=== PATIENT | male | born 1940 | race Caucasian/White ===

== ENCOUNTER 2019-07-07 09:43 | Outpatient (CLI) | payer MEDICARE, OTHER, SELFPAY ==
--- NOTE | 2019-07-07 14:55 | ECG_ITS ---
Measurements Intervals [place] Rate: 60 P: 63 UT: 204 QRS: 107 QRSD: 157 T: -8 QT: 501 QTc: 503 Interpretive Statements SINUS RHYTHM WITH FIRST DEGREE AV BLOCK VENTRICULAR PREMATURE COMPLEXES RIGHT AXIS DEVIATION RIGHT BUNDLE BRANCH BLOCK CANNOT RULE OUT SEPTAL INFARCT, AGE INDETERMINATE ABNORMAL ECG Electronically Signed On 07-07-2019 15:59:04 PHOTOENGRAVING PROOFER APPRENTICE by Kiko Shore D.O.
[2019-07-07 15:32] LABS: Basophils Percent Auto 0.3 % (0.2-1.2); Eosinophils Absolute Auto 0.1 K/mm3 (0-0.3); Eosinophils Percent Auto 2.1 % (0-4.4); Hematocrit 41.9 % (42.0-52.0); Hemoglobin 13.9 g/dL (14.0-18.0); Immature Granulocyte Absolute 0.03 K/mm3 (0.00-0.031); Immature Granulocyte Percent A 0.4 % (0-0.5); Lymphocytes Absolute Auto 1.47 K/mm3 (0.9-3.2); Lymphocytes Percent Auto 21.8 % (18.3-44.2); Mean Corpuscular HGB Conc 33.2 g/dl (32-36); Mean Corpuscular Hemoglobin 32.2 pg (26-34); Mean Platelet Volume 10.6 fl (7.4-10.4); Monocytes Absolute Auto 0.5 K/mm3 (0.1-0.6); Monocytes Percent Auto 7.1 % (2.6-8.5); Neutrophils Absolute Auto 4.6 K/mm3 (1.3-6.7); Neutrophils Percent Auto 68.3 % (45.5-73.1); Platelet Count Result 238 k/mm3 (150-375); Red Blood Count 4.32 M/mm3 (4.6-6.20); Red Cell Distribution Width 14.1 % (11.5-14.5); White Blood Count 6.7 K/mm3 (4.5-10.0)
[2019-07-07 15:42] LABS: Hemoglobin A1C 6.6 % (<5.7)
[2019-07-07 15:57] LABS: Blood Urea Nitrogen 18 mg/dL (9-20); Calcium 9.5 mg/dL (8.4-10.2); Carbon Dioxide 27 mmol/L (22-30); Chloride 103 mmol/L (98-107); Estimated Glomerular Filt Rate > 60; Glucose 131 mg/dL (75-110); Potassium 3.6 mmol/L (3.4-5.0); Sodium 141 mmol/L (137-145)
[2019-07-07 15:58] LABS: Albumin Level 4.5 g/dL (3.5-5.1); Urine Cotinine NEGATIVE
== END 2019-07-07 09:44 | disposition home or self-care (01) ==
LOC: ANHSURGERY 09:46
PROVIDERS: Anesthesiology; PCP Family Medicine; Visit Provider Orthopaedic Surgery
DX: I10 Essential (primary) hypertension (principal); I44.0 Atrioventricular block, first degree; I45.10 Unspecified right bundle-branch block
CPT/HCPCS: 36415; 80048; 80307; 82040; 83036; 85025; 93005

== ENCOUNTER 2019-07-15 01:19 | Day surgery (SDC) | payer MEDICARE, OTHER, SELFPAY ==
[2019-07-07 10:17] VITALS: BMI 30.8
[2019-07-07 10:31] VITALS: BP 172/90; PULSE 66; RESP 20; TEMP 36.6; O2SAT 97
--- NOTE | 2019-07-08 14:19 | PM.IMHP ---
H&P: HPI History of Present Illness Chief complaint: OA Left Knee Narrative: Mahad Castanon is a 78 year old male with chronic primary OA L knee, pain with ambulation, unrelieved by cortisone, PT, NSAIDs, and activity modification, xrays reveal advanced OA, now ready for a TKA L knee Review of Systems Review of Systems: All systems reviewed & are unremarkable except as noted in HPI and below PMFSH Past Medical History Medical History (Updated 07/08/19 @ 14:29 by RISHI Goetz) Afib CHF (congestive heart failure) COPD (chronic obstructive pulmonary disease) GERD (gastroesophageal reflux disease) H/O lipoma HTN (hypertension) Prostate cancer Sleep apnea Torn rotator cuff Surgical History Surgical History H/O bilateral cataract extraction H/O prostatectomy H/O transurethral resection of prostate Hx of tonsillectomy Social History Social History Smoking status: Former smoker Alcohol intake: former Gender identity (if verbalized by the patient): Male Meds Home Medications and Allergies Home Medications Medication Instructions Recorded Confirmed Type furosemide 40 mg BID 04/27/19 07/07/19 History irbesartan 150 mg PO HS 04/27/19 07/07/19 History levothyroxine 50 mcg PO HS 04/27/19 07/07/19 History metoprolol succinate 150 mg PO DAILY 04/27/19 07/07/19 History rivaroxaban [Xarelto] 20 mg PO HS 04/27/19 07/07/19 History metoprolol tartrate 25 mg PO HS 05/21/19 07/07/19 History Allergies Allergy/AdvReac Type Severity Reaction Status Date / Time Sulfa (Sulfonamide Allergy Mild Rash, Verified 07/07/19 10:03 Antibiotics) ITCHING, HIVES Penicillins Allergy Unknown Rash, Verified 07/07/19 10:03 ITCHING, HIVES cephalexin [From Keflex] Allergy Hives Verified 07/07/19 10:03 Exam Const: General: cooperative and no acute distress Nutritional Appearance: average body habitus HENMT: Head: normal to inspection Ears: hearing grossly normal bilaterally General nose exam: Normal external nose present Face and sinus: normal facial exam Eyes: General: appearance normal, both eyes and all related structures Visual Vora: normal visual vora by confrontation Chest: Chest palpation & inspection: normal inspection of the chest Resp: Effort & Inspection: normal respiratory effort Auscultation: clear to auscultation bilaterally Cardio: Rate: regular rate Rhythm: regular rhythm GI: Inspection: normal to inspection Auscultation: normal bowel sounds Skin: General skin exam: normal color Lesions: no lesions Rashes: no rashes Neuro: General: oriented to person, oriented to place, oriented to time, patient oriented x3 and CN's II-XI intact bilaterally Extrem: Left lower extremity: knee Details: tenderness, swelling, abnormal ROM and crepitus Psych: Appearance: grossly normal Assessment and Plan Assessment and plan (1) Primary osteoarthritis of left knee: Code(s): M17.12 - Unilateral primary osteoarthritis, left knee Status: Acute Assessment and Plan: Pt has discussed risks benefits limitations and alternatives to surgery in detail with Dr Willis and has advanced primary OA L knee, ready to proceed with a L TKA on 07-15-19 at [facility]
[2019-07-15] VITALS (12 sets, daily range): BP systolic 141–166; BP diastolic 61–80; PULSE 52–84; RESP 10–20; TEMP 36.6–36.8; O2SAT 95–100
--- NOTE | ~2019-07-15 | XR_ITS ---
EXAMINATION: XR knee LT 2V DATE: 07/15/2019 12:02 INDICATION: Total left knee arthroplasty. Postop. TECHNIQUE: 2 views of left knee were obtained. COMPARISON: None. FINDINGS: There is a total left knee arthroplasty with patellar resurfacing. Tibia demonstrate 6 degr ees posterior angulation with respect to tibial component. No fracture. There is gas in the knee join t and soft tissues, consistent with recent surgery. Anterior skin alan are noted. IMPRESSION: 1. New total left knee arthroplasty. Reviewed, dictated and finalized at location A. ATIONAL ASSISTANT TEACHER
--- NOTE | 2019-07-15 07:22 | WPDHPUPDATE1 ---
History and Physical Update Update Date/Time: 07/15/19 07:22 History and Physical has been reviewed, including an updated exam of the patient. There are NO changes in the patient's condition. Risks, benefits, and alternatives have been discussed and questions answered. Patient agrees to proceed with procedure.
--- NOTE | 2019-07-15 08:15 | WPDANESEPPF ---
Anes - Initial Pre Proc Eval Procedure: Operation Date: 07/15/19 10:00 Proposed Procedures p Left Total Knee Arthroplasty - Tex Willis MD Date/Time: 07/15/19 08:15 Surgeon: Tex Willis MD Pre Op Diagnosis: OA Left Knee Patient Data Age: 78 Gender: M Height: 1.75 m Weight: 94.8 kg Last Vital Signs Temp 36.6 C 07/07/19 10:31 Pulse 66 07/07/19 10:31 Resp 20 07/07/19 10:31 BP 172/90 H 07/07/19 10:31 Pulse Ox 97 07/07/19 10:31 Allergies Allergy/AdvReac Type Severity Reaction Status Date / Time Sulfa (Sulfonamide Allergy Mild Rash, Verified 07/07/19 10:03 Antibiotics) ITCHING, HIVES Penicillins Allergy Unknown Rash, Verified 07/07/19 10:03 ITCHING, HIVES cephalexin [From Keflex] Allergy Hives Verified 07/07/19 10:03 Home Medications Medication Instructions Recorded Confirmed Type furosemide 40 mg BID 04/27/19 07/15/19 History irbesartan 150 mg PO HS 04/27/19 07/15/19 History levothyroxine 50 mcg PO HS 04/27/19 07/15/19 History metoprolol succinate 150 mg PO DAILY 04/27/19 07/15/19 History rivaroxaban [Xarelto] 20 mg PO HS 04/27/19 07/15/19 History metoprolol tartrate 25 mg PO HS 05/21/19 07/15/19 History ECG: SINUS RHYTHM WITH FIRST DEGREE AV BLOCK VENTRICULAR PREMATURE COMPLEXES RIGHT AXIS DEVIATION RIGHT BUNDLE BRANCH BLOCK CANNOT RULE OUT SEPTAL INFARCT, AGE INDETERMINATE ABNORMAL ECG Patient hx anesthesia problems: none Family hx anesthesia problems: none [facility] Past Medical History Medical History (Updated 07/15/19 @ 09:21 by Cirilo Huerta DO) Afib COPD (chronic obstructive pulmonary disease) 1.5 PPD x 50 years, not officially diagnosed GERD (gastroesophageal reflux disease) H/O lipoma HTN (hypertension) Hypothyroidism Prostate cancer Torn rotator cuff Surgical History Surgical History H/O bilateral cataract extraction H/O prostatectomy H/O transurethral resection of prostate Hx of tonsillectomy Social History Social History Smoking status: Former smoker Alcohol intake: former Gender identity (if verbalized by the patient): Male Anes - Eval Final PreProcedure Day of Procedure 07/15/19 08:15 Patient weight: obese Heart: regular rate and rhythm Lungs: clear to auscultation and normal air movement Airway: Mallampati scale class II Neurological: alert and oriented Last oral intake: >/= 8 hours ASA classification: III Emergent: no Anesthetic plan: proceed Anesthesia type and monitoring: general LMA and standard monitoring Informed Consent: The patient's anesthetic plan and its attendant risks and benefits were discussed with the patient/family/POA. Questions were solicited and answers provided to the satisfaction of the patient/family/POA.
--- NOTE | 2019-07-15 08:16 | WPDANESPNB ---
Anes - Peripheral Nerve Block Date/Time: 07/15/19 08:16 I have discussed with the patient/family/POA the placement of a peripheral nerve block for post-operative pain management, including associated risks, benefits, complications, and side effects. Alternative methods of post-operative analgesia were detailed. Questions were solicited and answers provided to the satisfaction of the patient/family/POA. Time-Out: A pre-procedural Time-Out was completed immediately before starting the procedure and confirmed: Patient Identification, Site, Procedure, Patient Position and the Availability of Requisite Equipment. Clinical Indications: Acute post-operative pain management requested by the operative surgeon. Nerve Block Insertion Note Anes-nerve block: adductor canal left Patient position: supine Skin prep: chlorhexidine Needle: 22 gauge, stimulating, insulated echogenic needle. Needle length: 80 mm Technique: ultrasound Injectate: bupivacaine 0.5% with epi 5 mcg/ml (30cc) Observations: tolerated well Complications: none Procedure start time:: 925 Procedure end time:: 928
[2019-07-15] MEDS: LACTATED RINGERS 1,000 ML 30 ML IV CONT (08:43)
[2019-07-15] MEDS: CLINDAMYCIN 900 MG/NS 50 ML 900 MG/50 ML PIGGYBACK 50 MG IVPB (10:01)
[2019-07-15] MEDS: GENTAMICIN BONE CEMENT REFOBACIN 1 EACH TOPICAL (10:30)
--- NOTE | 2019-07-15 11:20 | PM.PROC ---
Procedure Note - Detailed Date of procedure: 07/15/19 Pre-op diagnosis: OA Left Knee Post-op diagnosis: same Procedure performed: [Left] total knee arthroplasty Description of procedure: The patient was brought to the operating room. General anesthetic was administered. Placed on the operating table and sterilely prepped and draped in usual manner. A longitudinal incision was made. Tourniquet inflated to 300 mmHg for a total of [35] minutes. Dissection carried down to the fascia. Medial parapatellar incision was made and the patella subluxated laterally. Patella cut from [24] to [15] mm and sized for a [34] mm button. The tibia cut perpendicular to the long axis and femur cut in 5 degrees of valgus, a [67.5] femur trialed. [71] tibia was felt to fit the best. The soft tissue balanced, hemostasis obtained. All [address], [71] tibia, [67.5] femur, [34] mm patella, and [12] mm PS Plus poly. Motion was 0-125 degrees with good stablility and flexion and extension. The wound was closed with #2 vicryl, 2-0 Vicryl and alan. Anesthesia: GETA Surgeon: Tex Willis MD Service Line Coordinator: Jair Reynolds Estimated blood loss (mL): 200 Drains: No Packing: No Pathology: none sent Complications: No immediate complications Condition: stable Disposition: PACU Findings: arthritis Large cyst in medial femoral condyle was grafted. After medial release patient still had laxity lateral and hence PS femur placed.
--- NOTE | 2019-07-15 12:47 | SUR.PHASEI ---
[phone] sbar faxed floor notified
--- NOTE | 2019-07-15 13:22 | ADMGEN ---
This patient, Mahad Castanon, was admitted to [address] [place] [address] 1320. Patient/family oriented to hospital policies and general routines including ID bracelet, bed and alarms, visiting hours, pain management, procedures, bathroom and other care routines, personal items, smoking policy, room service/diet, and visiting hours. Valuables list has been completed. Information on how to activate the Rapid Response Team has been discussed. Patient/Family are encouraged to report perceived risks to care and to ask questions if they do not understand what they are told or what they should do.
[2019-07-15 14:05] LABS: Basophils Percent Auto 0.2 % (0.2-1.2); Eosinophils Percent Auto 0.1 % (0-4.4); Hematocrit 39.8 % (42.0-52.0); Immature Granulocyte Absolute 0.06 K/mm3 (0.00-0.031); Immature Granulocyte Percent A 0.5 % (0-0.5); Lymphocytes Absolute Auto 0.69 K/mm3 (0.9-3.2); Lymphocytes Percent Auto 6.1 % (18.3-44.2); Mean Corpuscular HGB Conc 32.7 g/dl (32-36); Mean Corpuscular Hemoglobin 32.2 pg (26-34); Mean Corpuscular Volume 98.5 fl (80-100); Mean Platelet Volume 10.1 fl (7.4-10.4); Monocytes Absolute Auto 0.2 K/mm3 (0.1-0.6); Monocytes Percent Auto 1.8 % (2.6-8.5); Neutrophils Absolute Auto 10.4 K/mm3 (1.3-6.7); Neutrophils Percent Auto 91.3 % (45.5-73.1); Platelet Count Result 231 k/mm3 (150-375); Red Blood Count 4.04 M/mm3 (4.6-6.20); Red Cell Distribution Width 14.3 % (11.5-14.5); White Blood Count 11.4 K/mm3 (4.5-10.0)
[2019-07-15 14:16] LABS: Blood Urea Nitrogen 15 mg/dL (9-20); Calcium 8.9 mg/dL (8.4-10.2); Carbon Dioxide 28 mmol/L (22-30); Chloride 99 mmol/L (98-107); Estimated CRCL calculation 56 ml/min; Estimated Glomerular Filt Rate > 60; Glucose 175 mg/dL (75-110); Potassium 3.7 mmol/L (3.4-5.0); Sodium 137 mmol/L (137-145)
[2019-07-15 14:20] LABS: Albumin Level 4.1 g/dL (3.5-5.1)
[2019-07-15] MEDS: MORPHINE SULFATE 4 MG/ML INJ IV PUSH (15:47)
[2019-07-15] MEDS: CLINDAMYCIN 600 MG/NS 50 ML 600 MG/50 ML PIGGYBACK 100 MG IVPB (17:56)
[2019-07-15] MEDS: DOCUSATE SODIUM 100 MG CAPSULE PO (17:56)
[2019-07-15] MEDS: FUROSEMIDE 40 MG TABLET PO (17:56)
[2019-07-15 19:22] LABS: Hemoglobin A1C 6.7 % (<5.7)
[2019-07-15] MEDS: IRBESARTAN 150 MG TABLET PO (21:15)
[2019-07-15] MEDS: LEVOTHYROXINE SODIUM 50 MCG TABLET PO (21:15)
[2019-07-15] MEDS: RIVAROXABAN 20 MG TABLET PO (21:16)
[2019-07-15] MEDS: METOPROLOL TARTRATE 25 MG TABLET PO (21:17)
[2019-07-16] VITALS (7 sets, daily range): BP systolic 116–168; BP diastolic 50–62; PULSE 59–71; RESP 16–18; TEMP 36.8–37.4; O2SAT 95–100
[2019-07-16] MEDS: CLINDAMYCIN 600 MG/NS 50 ML 600 MG/50 ML PIGGYBACK 100 MG IVPB ×2 (01:37→11:06)
[2019-07-16 06:44] LABS: Basophils Percent Auto 0.1 % (0.2-1.2); Hematocrit 36.5 % (42.0-52.0); Immature Granulocyte Absolute 0.06 K/mm3 (0.00-0.031); Immature Granulocyte Percent A 0.6 % (0-0.5); Lymphocytes Absolute Auto 1.21 K/mm3 (0.9-3.2); Lymphocytes Percent Auto 11.4 % (18.3-44.2); Mean Corpuscular HGB Conc 32.9 g/dl (32-36); Mean Corpuscular Hemoglobin 32.3 pg (26-34); Mean Corpuscular Volume 98.4 fl (80-100); Mean Platelet Volume 10.1 fl (7.4-10.4); Monocytes Absolute Auto 1.2 K/mm3 (0.1-0.6); Monocytes Percent Auto 11.3 % (2.6-8.5); Neutrophils Absolute Auto 8.1 K/mm3 (1.3-6.7); Neutrophils Percent Auto 76.6 % (45.5-73.1); Platelet Count Result 238 k/mm3 (150-375); Red Blood Count 3.71 M/mm3 (4.6-6.20); Red Cell Distribution Width 14.4 % (11.5-14.5); White Blood Count 10.6 K/mm3 (4.5-10.0)
[2019-07-16 07:14] LABS: Blood Urea Nitrogen 26 mg/dL (9-20); Calcium 8.9 mg/dL (8.4-10.2); Carbon Dioxide 22 mmol/L (22-30); Chloride 99 mmol/L (98-107); Estimated CRCL calculation 48 ml/min; Estimated Glomerular Filt Rate 54; Glucose 147 mg/dL (75-110); Potassium 3.7 mmol/L (3.4-5.0); Sodium 136 mmol/L (137-145)
[2019-07-16] MEDS: DOCUSATE SODIUM 100 MG CAPSULE PO ×2 (08:37→16:56)
[2019-07-16] MEDS: METOPROLOL SUCCINATE EXT REL 50 MG TABCR 150 MG PO (08:37)
[2019-07-16] MEDS: FUROSEMIDE 40 MG TABLET PO ×2 (08:37→16:56)
--- NOTE | 2019-07-16 14:48 | P.PNAN_ITS ---
Anes - Prog Note Post-Op Date/Time: 07/16/19 14:48 Cardiovascular status: normal Respiratory status: normal Airway patency: baseline Mental status: baseline Post-Op hydration status: normal Vital Signs: Last Vital Signs Temp 98.2 F 07/16/19 06:00 Pulse 60 07/16/19 06:00 Resp 18 07/16/19 06:00 BP 132/60 07/16/19 06:00 Pulse Ox 95 07/16/19 06:00 I/O: Intake & Output 07/15/19 07/16/19 07/16/19 23:59 07:59 15:59 Intake Total 1080 790 240 Output Total 400 Balance 680 790 240 Laboratory Tests 07/16/19 06:15 07/16/19 06:15 07/15/19 07/15/19 07/16/19 13:50 13:50 06:15 WBC 10.6 H RBC 3.71 L Hgb 12.0 L Hct 36.5 L MCV 98.4 MCH 32.3 MCHC 32.9 RDW 14.4 Plt Count 238 MPV 10.1 Immature Gran % (Auto) 0.6 H Neut % (Auto) 76.6 H Lymph % (Auto) 11.4 L [place] % (Auto) 11.3 H Eos % (Auto) 0.0 Baso % (Auto) 0.1 L Lymph # (Auto) 1.21 [place] # (Auto) 1.2 H Eos # (Auto) 0.0 Baso # (Auto) 0.0 Abs Immat Gran (auto) 0.06 H Absolute Neuts (auto) 8.1 H Absolute Nucleated RBC 0.0 Nucleated RBC % 0.0 Sodium Potassium Chloride Carbon Dioxide BUN Creatinine Estim Creat Clear Calc Estimated GFR Glucose Hemoglobin A1c 6.7 H Calcium Blood Type O Positive Antibody Screen Negative 07/16/19 06:15 WBC RBC Hgb Hct MCV MCH MCHC RDW Plt Count MPV Immature Gran % (Auto) Neut % (Auto) Lymph % (Auto) [place] % (Auto) Eos % (Auto) Baso % (Auto) Lymph # (Auto) [place] # (Auto) Eos # (Auto) Baso # (Auto) Abs Immat Gran (auto) Absolute Neuts (auto) Absolute Nucleated RBC Nucleated RBC % Sodium 136 L Potassium 3.7 Chloride 99 Carbon Dioxide 22 BUN 26 H D Creatinine 1.30 Estim Creat Clear Calc 48 Estimated GFR 54 L Glucose 147 H Hemoglobin A1c Calcium 8.9 Blood Type Antibody Screen Post-procedural complaints: none Patient Feedback: Patient satisfied with anesthetic care.
--- NOTE | 2019-07-16 15:14 | WPDANESPN ---
Anes - Prog Note Post-Op Date/Time: 07/16/19 15:14 Cardiovascular status: normal Respiratory status: normal Airway patency: baseline Mental status: baseline Post-Op hydration status: normal Vital Signs: Last Vital Signs Temp 36.8 C 07/16/19 06:00 Pulse 60 07/16/19 06:00 Resp 18 07/16/19 06:00 BP 132/60 07/16/19 06:00 Pulse Ox 95 07/16/19 06:00 I/O: Intake & Output 07/15/19 07/16/19 07/16/19 23:59 07:59 15:59 Intake Total 1080 790 240 Output Total 400 Balance 680 790 240 Laboratory Tests 07/16/19 06:15 07/16/19 06:15 07/15/19 07/15/19 07/16/19 13:50 13:50 06:15 WBC 10.6 H RBC 3.71 L Hgb 12.0 L Hct 36.5 L MCV 98.4 MCH 32.3 MCHC 32.9 RDW 14.4 Plt Count 238 MPV 10.1 Immature Gran % (Auto) 0.6 H Neut % (Auto) 76.6 H Lymph % (Auto) 11.4 L [place] % (Auto) 11.3 H Eos % (Auto) 0.0 Baso % (Auto) 0.1 L Lymph # (Auto) 1.21 [place] # (Auto) 1.2 H Eos # (Auto) 0.0 Baso # (Auto) 0.0 Abs Immat Gran (auto) 0.06 H Absolute Neuts (auto) 8.1 H Absolute Nucleated RBC 0.0 Nucleated RBC % 0.0 Sodium Potassium Chloride Carbon Dioxide BUN Creatinine Estim Creat Clear Calc Estimated GFR Glucose Hemoglobin A1c 6.7 H Calcium Blood Type O Positive Antibody Screen Negative 07/16/19 06:15 WBC RBC Hgb Hct MCV MCH MCHC RDW Plt Count MPV Immature Gran % (Auto) Neut % (Auto) Lymph % (Auto) [place] % (Auto) Eos % (Auto) Baso % (Auto) Lymph # (Auto) [place] # (Auto) Eos # (Auto) Baso # (Auto) Abs Immat Gran (auto) Absolute Neuts (auto) Absolute Nucleated RBC Nucleated RBC % Sodium 136 L Potassium 3.7 Chloride 99 Carbon Dioxide 22 BUN 26 H D Creatinine 1.30 Estim Creat Clear Calc 48 Estimated GFR 54 L Glucose 147 H Hemoglobin A1c Calcium 8.9 Blood Type Antibody Screen Post-procedural complaints: none Patient Feedback: Patient satisfied with anesthetic care.
--- NOTE | 2019-07-16 15:34 | PM.IMCN ---
Assessment and Plan Assessment and plan (1) Primary osteoarthritis of left knee: Code(s): M17.12 - Unilateral primary osteoarthritis, left knee Status: Acute Assessment and Plan: Sp left knee arthroplasty. Continue pain control, PT and OT, continue orthopedics recommendations (2) Hypothyroidism: Code(s): E03.9 - Hypothyroidism, unspecified Status: Acute Assessment and Plan: On levothyroxine (3) Prostate cancer: Code(s): C61 - Malignant neoplasm of prostate Status: Acute Assessment and Plan: In remission (4) HTN (hypertension): Code(s): I10 - Essential (primary) hypertension Status: Acute Assessment and Plan: on irbesartan and lasix and metoprolol (5) GERD (gastroesophageal reflux disease): Code(s): K21.9 - Gastro-esophageal reflux disease without esophagitis Status: Acute Assessment and Plan: Add protonix (6) Afib: Code(s): I48.91 - Unspecified atrial fibrillation Status: Acute Assessment and Plan: on metoprolol and xarelto HPI Data of Consult Consult date: 07/16/19 Requesting Physician: Tex Willis MD Primary Care Provider: Darryl David MD Consult Narrative Narrative: Mahad Castanon is a 78 year old male post op day 1 for left knee arthroplasty, pt has history of prostate carcinoma treated 10 years ago by surgery. Pt also has history of AF, HTN, hypothyroidism. Pt is having slight left knee pain otherwise feels well. Medically pt is stable, hopeful discharge tomorrow. Review of Systems Review of Systems: All systems reviewed & are unremarkable except as noted in HPI and below Musculoskeletal: Comments: Left knee pain PMFSH Past Medical History Medical History Afib COPD (chronic obstructive pulmonary disease) 1.5 PPD x 50 years, not officially diagnosed GERD (gastroesophageal reflux disease) H/O lipoma HTN (hypertension) Hypothyroidism Prostate cancer Torn rotator cuff Surgical History Surgical History H/O bilateral cataract extraction H/O prostatectomy H/O transurethral resection of prostate Hx of tonsillectomy Social History Social History Smoking packs per day: 1.5 Smoking cigarettes per day: 30.0 Years smoked: 15 Smoking pack-years: 22.50 Smoking status: Former smoker Tobacco type: cigarettes Alcohol intake: former Drinks per week: 14 Substance use: never Gender identity (if verbalized by the patient): Male Spiritual care concerns: No Agree to blood products: Yes Meds Home Medications and Allergies Home Medications Medication Instructions Recorded Confirmed Type furosemide 40 mg BID 04/27/19 07/15/19 History irbesartan 150 mg PO HS 04/27/19 07/15/19 History levothyroxine 50 mcg PO HS 04/27/19 07/15/19 History metoprolol succinate 150 mg PO DAILY 04/27/19 07/15/19 History rivaroxaban [Xarelto] 20 mg PO HS 04/27/19 07/15/19 History metoprolol tartrate 25 mg PO HS 05/21/19 07/15/19 History acetaminophen [Tylenol] 325 mg PO BID PRN 07/15/19 07/15/19 History cyanocobalamin (vitamin B-12) 1,000 mcg PO DAILY 07/15/19 07/15/19 History [Vitamin B-12] multivitamin [Daily Multi-Vitamin] 1 tablet PO DAILY 07/15/19 07/15/19 History Allergies Allergy/AdvReac Type Severity Reaction Status Date / Time Sulfa (Sulfonamide Allergy Mild Rash, Verified 07/07/19 10:03 Antibiotics) ITCHING, HIVES Penicillins Allergy Unknown Rash, Verified 07/07/19 10:03 ITCHING, HIVES cephalexin [From Keflex] Allergy Hives Verified 07/07/19 10:03 Vital Signs Vital Signs - 24 hr 07/15/19 21:17 07/15/19 22:00 07/16/19 02:00 Temperature 36.7 C 37.2 C Pulse Rate 84 57 L 60 Respiratory Rate 16 18 Blood Pressure 158/64 H 124/62 Pulse Oximetry 96 9
--- NOTE | 2019-07-16 16:59 | PM.PNORT ---
Progress Note: A&P Additional Plan Pt with postop pain, states he could not go home today and wouldnt be safe at home the way he feels, will adjust pain meds as needed, monitor overnight and work on more PT in the am, if looks good, will DC at that time, pt agrees with plan, will follow Time Spent With Patient Time with patient: less than 15 minutes Subjective Subjective Date/Time Seen: 07/16/19 16:59 Pt with some post op pain limiting his ability to move in PT, going slowly today and says since block wore off he's in sig pain, otherwise looks ok with no other sig complaints Exam Narrative: Exam Narrative: VSS afebrile NV intact wound dressing clean and with min bloodydrainage, calves benign Objective Data Vital Signs Vital Signs: Vital Signs - 24 hr 07/15/19 21:17 07/15/19 22:00 07/16/19 02:00 Temperature 36.7 C 37.2 C Pulse Rate 84 57 L 60 Respiratory Rate 16 18 Blood Pressure 158/64 H 124/62 Pulse Oximetry 96 97 07/16/19 06:00 Temperature 36.8 C Pulse Rate 60 Respiratory Rate 18 Blood Pressure 132/60 Pulse Oximetry 95 Intake/Output Intake/Output: Intake & Output 07/13/19 07/14/19 07/15/19 07/16/19 23:59 23:59 23:59 23:59 Intake Total 2080 1080 Output Total 400 Balance 1680 1080 Meds/Results Medications: Active Medications Generic Name Dose Route Start Last Admin Trade Name Freq PRN Reason Stop Dose Admin Hydrocodone Bitart/Acetaminophen 1 tab 07/15/19 21:00 07/16/19 16:56 [place] 7.5-325 Mg PO 1 tab Q4HR KENNETH Administration Celecoxib 200 mg 07/15/19 17:00 Celebrex PO BIDWM KENNETH Cyclobenzaprine HCl 10 mg 07/15/19 13:09 Flexeril PO Q8H PRN Spasms Docusate Sodium 100 mg 07/15/19 17:00 07/16/19 16:56 Colace Capsule PO 100 mg BID KENNETH Administration Furosemide 40 mg 07/15/19 17:00 07/16/19 16:56 Lasix Tablet PO 40 mg BID KENNETH Administration Irbesartan 150 mg 07/15/19 21:00 07/15/19 21:15 Avapro PO 150 mg HS [facility] Administration Levothyroxine Sodium 50 mcg 07/17/19 06:30 Synthroid PO DAILY@0630 [facility] Metoprolol Succinate 150 mg 07/16/19 09:00 07/16/19 08:37 Toprol Xl PO 150 mg DAILY [facility] Administration Metoprolol Tartrate 25 mg 07/15/19 21:00 07/15/19 21:17 Lopressor PO 25 mg HS [facility] Administration Morphine Sulfate 4 mg 07/15/19 13:09 07/15/19 15:47 Morphine Sulfate Inj IV PUSH 4 mg Q2H PRN Administration Breakthrough pain rated 7-10 Naloxone HCl 0.1 mg 07/15/19 13:09 Narcan IV PUSH Q2M PRN Opiate Reversal Oxycodone HCl 5 mg 07/15/19 13:09 07/16/19 11:05 Roxicodone Ir Tablet PO 5 mg Q4H PRN Administration Pain Rated 4-6 Rivaroxaban 20 mg 07/15/19 21:00 07/15/19 21:16 Xarelto PO 20 mg HS [facility] Administration Tramadol HCl 50 mg 07/15/19 13:09 Ultram PO Q4H PRN Pain Rated 1-3 Radiology Results: ITS Impressions Knee X-Ray 07/15/19 12:03 IMPRESSION: 1. New total left knee arthroplasty. Labs Labs: Laboratory Results - last 24 hr 07/15/19 07/16/19 07/16/19 13:50 06:15 06:15 WBC 10.6 H RBC 3.71 L Hgb 12.0 L Hct 36.5 L MCV 98.4 MCH 32.3 MCHC 32.9 RDW 14.4 Plt Count 238 MPV 10.1 Immature Gran % (Auto) 0.6 H Neut % (Auto) 76.6 H Lymph % (Auto) 11.4 L [place] % (Auto) 11.3 H Eos % (Auto) 0.0 Baso % (Auto) 0.1 L Lymph # (Auto) 1.21 [place] # (Auto) 1.2 H Eos # (Auto) 0.0 Baso # (Auto) 0.0 Abs Immat Gran (auto) 0.06 H Absolute Neuts (auto) 8.1 H Absolute Nucleated RBC 0.0 Nucleated RBC % 0.0 Sodium 136 L Potassium 3.7 Chloride 99 Carbon Dioxide 22 BUN 26 H D Creatinine 1.30 Estim Creat Clear Calc 48 Estimated GFR 54 L Glucose 147 H Hemoglobin A1c 6.7 H Calcium 8.9 Quality VTE Prophylaxis VTE prophylaxis: pharmacologic ordered
[2019-07-16] MEDS: IRBESARTAN 150 MG TABLET PO (21:29)
[2019-07-16] MEDS: METOPROLOL TARTRATE 25 MG TABLET PO (21:29)
[2019-07-16] MEDS: RIVAROXABAN 20 MG TABLET PO (21:30)
[2019-07-16] MEDS: CYCLOBENZAPRINE HCL 10 MG TABLET PO (22:39)
[2019-07-17] MEDS: LEVOTHYROXINE SODIUM 50 MCG TABLET PO (05:46)
[2019-07-17 06:00] VITALS: BP 121/50; PULSE 68; RESP 18; TEMP 37.4; O2SAT 95
[2019-07-17 09:36] VITALS: PULSE 88
[2019-07-17] MEDS: METOPROLOL SUCCINATE EXT REL 50 MG TABCR 150 MG PO (09:36)
[2019-07-17] MEDS: FUROSEMIDE 40 MG TABLET PO (09:36)
[2019-07-17] MEDS: DOCUSATE SODIUM 100 MG CAPSULE PO (09:36)
[2019-07-17] MEDS: CALCIUM CARBONATE (TUMS) 500 MG (200 MG ELEMENTAL) PO (10:05)
--- NOTE | 2019-07-17 11:35 | PCOTNOTE ---
Attempted to see patient for OT, however, patient was ready to be discharged - dressed and bathed. Reviewed with patient all areas of ADLs, including bathing DME. Patient and family stated they have a shower chair with railing on the side of the tub. Patient and family educated over [employer] in [employer] in case a tub transfer bench is needed. Patient and family agreed no interventions required at this time from OT. Patient not treated this date.
--- NOTE | 2019-07-17 11:44 | PM.DS ---
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 automat long goods (current) drug therapy Osteoarthritis Right knee DS: Summary Time Spent with Patient Time attestation: Total time spent providing and/or coordinating discharge services: Exam Narrative: Exam Narrative: VSS afebrile NV intact wound with min serous bloody drainage, small tension blister distal end of wound due to mod swelling, otherwise calves benign, skin intact Discharge Plan Discharge Patient Disposition: Home, Self-Care Discharge Instructions: DC on monday 07/17/ pm after PT sessions, home with scripts for Post and Cyclobenzaprine on chart, change dressing daily, start PT as outpt for TKA protocol next saturday, call office [phone] for any questions or problems, general diet Patient Instructions: Pain Management Older Adults (DC), Knee Replacement (DC) Stand Alone Forms: Avoid NSAIDs Follow-up/Referrals: Tex Willis MD [Physician] - Discharge Medications: New cyclobenzaprine 10 mg Tablet 10 mg PO Q8H PRN (Reason: Spasms) Qty: 50 RF: 0 hydrocodone-acetaminophen 7.5-325 mg Tablet 1 tab PO Q4HR Qty: 50 RF: 0 Continued furosemide 40 mg Tablet 40 mg BID RF: 0 metoprolol succinate 50 mg Tablet Extended Release 24 Hr 150 mg PO DAILY RF: 0 levothyroxine 50 mcg Tablet 50 mcg PO HS RF: 0 irbesartan 150 mg Tablet 150 mg PO HS RF: 0 Xarelto 20 mg Tablet 20 mg PO HS RF: 0 metoprolol tartrate 25 mg tablet 25 mg PO HS RF: 0 multivitamin [Daily Multi-Vitamin] Tablet 1 tablet PO DAILY RF: 0 cyanocobalamin (vitamin B-12) [Vitamin B-12] 1,000 mcg Tablet 1,000 mcg PO DAILY RF: 0 Discontinued acetaminophen [Tylenol] 325 mg Tablet 325 mg PO BID PRN (Reason: joint pain) RF: 0 Quality VTE Prophylaxis VTE prophylaxis: pharmacologic ordered
--- NOTE | 2019-07-17 11:48 | PM.DS ---
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 Osteoarthritis Right knee DS: Summary Time Spent with Patient Time attestation: Total time spent providing and/or coordinating discharge services: Exam Narrative: Exam Narrative: VSS afebrile NV intact wound clean, min bloody drainage, small tension blister distal end of wound, otherwise looks good, calves benign Discharge Plan Discharge Patient Disposition: Home, Self-Care Discharge Instructions: DC on saturday07/17/19 pm after PT sessions, home with scripts for [place] and Cyclobenzaprine on chart, change dressing daily, start PT as outpt for TKA protocol next saturday, call office [phone] for any questions or problems, general diet Patient Instructions: Pain Management Older Adults (DC), Knee Replacement (DC) Stand Alone Forms: Avoid NSAIDs Follow-up/Referrals: Tex Willis MD [Physician] - Discharge Medications: New cyclobenzaprine 10 mg Tablet 10 mg PO Q8H PRN (Reason: Spasms) Qty: 50 RF: 0 hydrocodone-acetaminophen 7.5-325 mg Tablet 1 tab PO Q4HR Qty: 50 RF: 0 Continued furosemide 40 mg Tablet 40 mg BID RF: 0 metoprolol succinate 50 mg Tablet Extended Release 24 Hr 150 mg PO DAILY RF: 0 levothyroxine 50 mcg Tablet 50 mcg PO HS RF: 0 irbesartan 150 mg Tablet 150 mg PO HS RF: 0 Xarelto 20 mg Tablet 20 mg PO HS RF: 0 metoprolol tartrate 25 mg tablet 25 mg PO HS RF: 0 multivitamin [Daily Multi-Vitamin] Tablet 1 tablet PO DAILY RF: 0 cyanocobalamin (vitamin B-12) [Vitamin B-12] 1,000 mcg Tablet 1,000 mcg PO DAILY RF: 0 Discontinued acetaminophen [Tylenol] 325 mg Tablet 325 mg PO BID PRN (Reason: joint pain) RF: 0 Quality VTE Prophylaxis VTE prophylaxis: pharmacologic ordered
--- NOTE | 2019-07-17 12:05 | PC.NURSE ---
Jair BLACKWELL notified of blood blister on inner lower knee
--- NOTE | 2019-07-17 12:16 | PCPTNOTE ---
Returned to patients room to instruct his family in stair climbing using adjusted walker for stairs. Patient and family express understanding of technique.
--- NOTE | 2019-07-17 12:20 | PM.IMPN ---
Progress Note: A&P Assessment and Plan (1) Primary osteoarthritis of left knee: Code(s): M17.12 - Unilateral primary osteoarthritis, left knee Status: Acute Assessment and Plan: Sp left knee arthroplasty. Continue pain control, PT and OT, continue orthopedics recommendations (2) Hypothyroidism: Code(s): E03.9 - Hypothyroidism, unspecified Status: Acute Assessment and Plan: On levothyroxine (3) Prostate cancer: Code(s): C61 - Malignant neoplasm of prostate Status: Acute Assessment and Plan: In remission (4) HTN (hypertension): Code(s): I10 - Essential (primary) hypertension Status: Acute Assessment and Plan: On irbesartan and lasix and metoprolol (5) GERD (gastroesophageal reflux disease): Code(s): K21.9 - Gastro-esophageal reflux disease without esophagitis Status: Acute Assessment and Plan: Add protonix (6) Afib: Code(s): I48.91 - Unspecified atrial fibrillation Status: Acute Assessment and Plan: On metoprolol and xarelto Subjective Date/time seen: 07/17/19 12:20 Interval history: Mahad Castanon is a 78 year old male post op day 1 for left knee arthroplasty, pt has history of prostate carcinoma treated 10 years ago by surgery. Pt also has history of AF, HTN, hypothyroidism. Pt is having slight left knee pain otherwise feels well. Medically pt is stable, hopeful discharge today. Review of Systems Review of Systems: All systems reviewed & are unremarkable except as noted in HPI and below Musculoskeletal: Comments: Knee pain Psychiatric: Psychiatric: Reports anxiety Exam Const: General: well developed Nutritional Appearance: well nourished HENMT: Head: normocephalic Eyes: General: appearance normal, both eyes and all related structures Pupils: Equal, round and reactive pupils present Neck: Neck: supple Chest: Chest palpation & inspection: normal inspection of the chest Resp: Effort & Inspection: normal respiratory effort Auscultation: clear to auscultation bilaterally Cardio: Jugular venous distension: no JVD Rhythm: regular rhythm Heart sounds: S1 normal heart sound present and S2 normal heart sound present GI: Inspection: normal to inspection Auscultation: normal bowel sounds : General: Yes no CVA tenderness Back/Spine/Pelvis: Back: no CVA tenderness Skin: General skin exam: normal color and dry skin Neuro: Cranial nerves: Yes CN's II-XII intact bilaterally and Yes Equal, round and reactive pupils present Cognition (Neuro): normal cognition Speech: normal speech Motor exam (neuro): 5/5 motor strength present throughout Extrem: General: other (Sp left knee arthroplasty with polar ice machine ) Psych: Appearance: grossly normal Mental Status: mental status grossly normal Objective Data Vital Signs Vital Signs: Vital Signs - 24 hr 07/16/19 14:00 07/16/19 18:00 07/16/19 21:29 Temperature 37.4 C 37.2 C Pulse Rate 59 L 71 70 Respiratory Rate 16 16 Blood Pressure 124/50 L 116/54 L Pulse Oximetry 100 100 07/16/19 22:00 07/17/19 06:00 07/17/19 09:36 Temperature 37.2 C 37.4 C Pulse Rate 71 68 88 Respiratory Rate 18 18 Blood Pressure 168/52 H 121/50 L Pulse Oximetry 96 95 Intake/Output Intake/Output: Intake & Output 07/14/19 07/15/19 07/16/19 07/17/19 23:59 23:59 23:59 23:59 Intake Total 2080 2360 1000 Output Total 400 Balance 1680 2360 1000 Meds/Results Medications: Active Medications Generic Name Dose Route Start Last Admin Trade Name Freq PRN Reason Stop Dose Admin Hydrocodone Bitart/Acetaminophen 1 tab 07/15/19 21:00 07/17/19 09:36 [place] 7.5-325 Mg PO 1 tab Q4HR KENNETH Administration Calcium Carbonate 200 mg 07/17/19 09:56 07/17/19 10:05 Tums PO 200 mg Q6H PRN Administration Indigestion Celecoxib 200 mg 07/15/19 17:00 Celebrex PO BIDWM KENNETH Cyclobenzaprine HCl 10 mg 02
== END 2019-07-17 12:25 | disposition home or self-care (01) ==
LOC: ANHSURGERY 07:58 → ANH3MEDSUR 13:24
PROVIDERS: Anesthesiology; PCP Family Medicine; Visit Provider Orthopaedic Surgery
PROC: (CPT 27447; principal; 2019-07-15 10:00)
DX: M17.12 Unilateral primary osteoarthritis, left knee (principal); G89.18 Other acute postprocedural pain; I48.91 Unspecified atrial fibrillation; K21.9 Gastro-esophageal reflux disease without esophagitis; I10 Essential (primary) hypertension; E03.9 Hypothyroidism, unspecified; Z85.46 Personal history of malignant neoplasm of prostate; Z79.01 Long term (current) use of anticoagulants; Z87.891 Personal history of nicotine dependence; E66.9 Obesity, unspecified; Z68.30 Body mass index [BMI] 30.0-30.9, adult; Z79.899 Other long term (current) drug therapy
CPT/HCPCS: 27447; 64447; 36415; 73560; 80048; 80307; 82040; 83036; 85025; 86850; 86900; 86901; 93005; 97110; 97116; 97161; 97165; 97530; A9270; C1713; C1776; J0171; J1100; J1885; J2270; J2405; J2704; J2795; J3010; J3370; J7120

== ENCOUNTER 2019-12-21 11:51 | Outpatient (CLI) | payer MEDICARE, OTHER, SELFPAY ==
[2019-12-21 13:00] LABS: Basophils Percent Auto 0.4 % (0.2-1.2); Eosinophils Absolute Auto 0.1 K/mm3 (0-0.3); Eosinophils Percent Auto 1.4 % (0-4.4); Hematocrit 49.1 % (42.0-52.0); Hemoglobin 16.2 g/dL (14.0-18.0); Immature Granulocyte Absolute 0.03 K/mm3 (0.00-0.031); Immature Granulocyte Percent A 0.4 % (0-0.5); Lymphocytes Absolute Auto 1.79 K/mm3 (0.9-3.2); Lymphocytes Percent Auto 22.6 % (18.3-44.2); Mean Corpuscular Hemoglobin 32.1 pg (26-34); Mean Corpuscular Volume 97.4 fl (80-100); Mean Platelet Volume 9.2 fl (7.4-10.4); Monocytes Absolute Auto 0.6 K/mm3 (0.1-0.6); Monocytes Percent Auto 7.8 % (2.6-8.5); Neutrophils Absolute Auto 5.4 K/mm3 (1.3-6.7); Neutrophils Percent Auto 67.4 % (45.5-73.1); Platelet Count Result 290 k/mm3 (150-375); Red Blood Count 5.04 M/mm3 (4.6-6.20); Red Cell Distribution Width 14.1 % (11.5-14.5); White Blood Count 7.9 K/mm3 (4.5-10.0)
[2019-12-21 13:08] LABS: Albumin Level 4.5 g/dL (3.5-5.1)
[2019-12-21 13:11] LABS: Blood Urea Nitrogen 18 mg/dL (9-20); Calcium 9.6 mg/dL (8.4-10.2); Carbon Dioxide 28 mmol/L (22-30); Chloride 103 mmol/L (98-107); Estimated Glomerular Filt Rate > 60; Glucose 132 mg/dL (75-110); Potassium 4.2 mmol/L (3.4-5.0); Sodium 137 mmol/L (137-145)
[2019-12-21 13:20] LABS: Urine Cotinine NEGATIVE
[2019-12-21 13:27] LABS: Hemoglobin A1C 6.8 % (<5.7)
== END 2019-12-21 11:52 | disposition home or self-care (01) ==
LOC: ANHSURGERY 11:53
PROVIDERS: Anesthesiology; PCP Family Medicine; Visit Provider Orthopaedic Surgery
DX: M17.11 Unilateral primary osteoarthritis, right knee (principal); Z79.899 Other long term (current) drug therapy; Z01.812 Encounter for preprocedural laboratory examination
CPT/HCPCS: 36415; 80048; 80307; 82040; 83036; 85025; 86850; 86900; 86901

== ENCOUNTER 2019-12-28 02:52 | Outpatient (CLI) | payer MEDICARE, OTHER, SELFPAY ==
--- NOTE | 2019-12-28 12:28 | PM.IMHP ---
H&P: HPI History of Present Illness Chief complaint: Preop/ Covid Narrative: Mahad Castanon is a 79 year old male Who presents with right knee pain due to severe primary osteoarthritis. The patient notes significant loss of motion and varus deformity right knee. Patient has undergone a previous left total knee arthroplasty has done well. His right knee continues to limit his daily activities. He can not stand or walk for long periods. He has start up pain rest pain and night pain. X-rays show advanced primary osteoarthritis in the right knee joint. Patient has failed conservative measures including cortisone therapy and anti-inflammatories and his symptoms continue. He is tired of living with it and would like to proceed now with a right total knee arthroplasty. Review of Systems Review of Systems: All systems reviewed & are unremarkable except as noted in HPI and below PMFSH Past Medical History Medical History Afib COPD (chronic obstructive pulmonary disease) 1.5 PPD x 50 years, not officially diagnosed GERD (gastroesophageal reflux disease) H/O lipoma HTN (hypertension) Hypothyroidism Prostate cancer Torn rotator cuff Surgical History Surgical History H/O bilateral cataract extraction H/O prostatectomy H/O transurethral resection of prostate Hx of tonsillectomy Social History Social History Smoking packs per day: 1.5 Smoking cigarettes per day: 30.0 Years smoked: 15 Smoking pack-years: 22.50 Smoking status: Former smoker Tobacco type: cigarettes Additional smoking assessment comments: 1 1/2PK/DAY/AGE 15 STOPPED 2014 Alcohol intake: former Drinks per week: 14 Substance use: never Gender identity (if verbalized by the patient): Male Spiritual care concerns: No Agree to blood products: Yes Meds Home Medications and Allergies Home Medications Medication Instructions Recorded Confirmed Type Xarelto 20 mg PO HS 04/27/19 12/21/19 History furosemide 40 mg QAM 04/27/19 12/21/19 History irbesartan 150 mg PO HS 04/27/19 12/21/19 History levothyroxine 50 mcg PO HS 04/27/19 12/21/19 History metoprolol succinate 150 mg PO QAM 04/27/19 12/21/19 History metoprolol tartrate 25 mg PO HS 05/21/19 12/21/19 History cyanocobalamin (vitamin B-12) 1,000 mcg PO DAILY 07/15/19 12/21/19 History [Vitamin B-12] multivitamin [Daily Multi-Vitamin] 1 tablet PO DAILY 07/15/19 12/21/19 History Allergies Allergy/AdvReac Type Severity Reaction Status Date / Time Sulfa (Sulfonamide Allergy Mild Rash, Verified 12/21/19 12:05 Antibiotics) ITCHING, HIVES Penicillins Allergy Unknown Rash, Verified 12/21/19 12:05 ITCHING, HIVES cephalexin [From Keflex] Allergy Hives Verified 12/21/19 12:05 Exam Narrative: Exam Narrative: patient is a well-developed well-nourished male no acute distress. He is alert and oriented x3. Normal mood and affect. Hearing and vision intact. HEENT exam within normal limits. Heart regular rate rhythm. Lungs clear auscultation. Abdomen benign. Extremities showed the patient's right knee to be painful with manipulation range of motion. He has tenderness on the medial joint line with a varus deformity. He has subpatellar crepitation through the arc of motion mildly limited motion as well. Some mild effusion swelling no erythema heat or other signs of infection. Hips move well negative Stinchfield negative COSMO. He walks an antalgic gait because his right knee pain. X-rays show advanced primary osteoarthritis. Neurovascular is intact. Central nervous system exam within normal limits. Assessment and Plan Additional Plan By x-ray exam the patient is noted have severe primary osteoarthritis right knee joint. The patient has discussed risks benefits limitations and alternatives of surgery in great det
[2019-12-29 20:05] LABS: SARS-CoV-2 RNA PCR Negative
== END 2019-12-28 02:53 | disposition home or self-care (01) ==
LOC: ANHCOVIDDT 02:53
PROVIDERS: PCP Family Medicine; Visit Provider Orthopaedic Surgery
DX: Z01.812 Encounter for preprocedural laboratory examination (principal); Z11.59 Encounter for screening for other viral diseases
CPT/HCPCS: 87635; C9803; U0003

== ENCOUNTER 2019-12-30 02:10 | Day surgery (SDC) | payer MEDICARE, OTHER, SELFPAY ==
[2019-12-21 12:14] VITALS: BP 152/88; PULSE 94; RESP 20; TEMP 36.9; O2SAT 97
[2019-12-21 12:40] VITALS: BMI 30.7
--- NOTE | 2019-12-29 12:44 | WPDANESEPPF ---
Anes - Initial Pre Proc Eval Procedure: Operation Date: 12/30/19 07:30 Proposed Procedures p Right Total Knee Arthroplasty - Tex Willis MD Date/Time: 12/29/19 12:44 Surgeon: Tex Willis MD Pre Op Diagnosis: OA Right Knee Patient Data Age: 79 Gender: M Height: 1.75 m Weight: 94.3 kg Last Vital Signs Temp 36.9 C 12/21/19 12:14 Pulse 94 12/21/19 12:14 Resp 20 12/21/19 12:14 BP 152/88 H 12/21/19 12:14 Pulse Ox 97 12/21/19 12:14 Allergies Allergy/AdvReac Type Severity Reaction Status Date / Time Sulfa (Sulfonamide Allergy Mild Rash, Verified 12/30/19 06:58 Antibiotics) ITCHING, HIVES Penicillins Allergy Unknown Rash, Verified 12/30/19 06:58 ITCHING, HIVES cephalexin [From Keflex] Allergy Hives Verified 12/30/19 06:58 Home Medications Medication Instructions Recorded Confirmed Type Xarelto 20 mg PO HS 04/27/19 12/21/19 History furosemide 40 mg QAM 04/27/19 12/21/19 History irbesartan 150 mg PO HS 04/27/19 12/21/19 History levothyroxine 50 mcg PO HS 04/27/19 12/21/19 History metoprolol succinate 150 mg PO QAM 04/27/19 12/21/19 History metoprolol tartrate 25 mg PO HS 05/21/19 12/21/19 History cyanocobalamin (vitamin B-12) 1,000 mcg PO DAILY 07/15/19 12/21/19 History [Vitamin B-12] multivitamin [Daily Multi-Vitamin] 1 tablet PO DAILY 07/15/19 12/21/19 History Patient hx anesthesia problems: none Family hx anesthesia problems: none PMFSH Social History Social History Smoking packs per day: 1.5 Smoking cigarettes per day: 30.0 Years smoked: 15 Smoking pack-years: 22.50 Smoking status: Former smoker Tobacco type: cigarettes Additional smoking assessment comments: 1 1/2PK/DAY/AGE 15 STOPPED 2014 Alcohol intake: former Drinks per week: 14 Alcohol use details: NONE SINE 2017 Substance use: never Living arrangements: with family Gender identity (if verbalized by the patient): Male Spiritual care concerns: No Agree to blood products: Yes Anes - Eval Final PreProcedure Day of Procedure 12/29/19 12:44 Patient weight: obese Heart: regular rate and rhythm Lungs: clear to auscultation and normal air movement Airway: Mallampati scale class II Neurological: alert and oriented Last oral intake: >/= 8 hours ASA classification: III Emergent: no Anesthetic plan: proceed Anesthesia type and monitoring: general LMA and standard monitoring Informed Consent: The patient's anesthetic plan and its attendant risks and benefits were discussed with the patient/family/POA. Questions were solicited and answers provided to the satisfaction of the patient/family/POA.
--- NOTE | 2019-12-29 12:46 | WPDANESPNB ---
Anes - Peripheral Nerve Block Date/Time: 12/29/19 12:46 I have discussed with the patient/family/POA the placement of a peripheral nerve block for post-operative pain management, including associated risks, benefits, complications, and side effects. Alternative methods of post-operative analgesia were detailed. Questions were solicited and answers provided to the satisfaction of the patient/family/POA. Time-Out: A pre-procedural Time-Out was completed immediately before starting the procedure and confirmed: Patient Identification, Site, Procedure, Patient Position and the Availability of Requisite Equipment. Clinical Indications: Acute post-operative pain management requested by the operative surgeon. Nerve Block Insertion Note Anes-nerve block: adductor canal right Patient position: supine Skin prep: chlorhexidine Needle: 22 gauge, stimulating, insulated echogenic needle. Needle length: 80 mm Technique: ultrasound Injectate: bupivacaine 0.5% with epi 5 mcg/ml (30cc) Observations: tolerated well Complications: none Procedure start time:: 719 Procedure end time:: 723
[2019-12-30] VITALS (13 sets, daily range): BP systolic 101–142; BP diastolic 67–97; PULSE 53–104; RESP 10–20; TEMP 35.9–36.4; O2SAT 93–100
--- NOTE | ~2019-12-30 | XR_ITS ---
EXAMINATION: XR knee RT 2V DATE: 12/30/2019 09:58 INDICATION: Right total knee arthroplasty. Postop. TECHNIQUE: 2 views of right knee were obtained. COMPARISON: None. FINDINGS: There is a total right knee arthroplasty with patellar resurfacing in near-anatomic alignme nt. No fracture. There is gas in the knee joint and soft tissues, consistent with recent surgery. Ant erior skin alan are noted. IMPRESSION: 1. Total right knee arthroplasty in near-anatomic alignment. Reviewed, dictated and finalized at location A.
[2019-12-30] MEDS: ACETAMINOPHEN 500 MG TABLET 1000 MG PO (06:35)
[2019-12-30] MEDS: TRANEXAMIC ACID 1,000MG/ISO100 1,000 MG/100 ML BAG 200 MG IVPB (06:40)
[2019-12-30] MEDS: LACTATED RINGERS 1,000 ML 30 ML IV CONT ×2 (06:40→09:36)
[2019-12-30] MEDS: KETOROLAC 15 MG/ML VIAL (*BKC) IV PUSH (06:45)
--- NOTE | 2019-12-30 07:10 | WPDHPUPDATE1 ---
History and Physical Update Update Date/Time: 12/30/19 07:10 History and Physical has been reviewed, including an updated exam of the patient. There are NO changes in the patient's condition. Risks, benefits, and alternatives have been discussed and questions answered. Patient agrees to proceed with procedure.
[2019-12-30] MEDS: CLINDAMYCIN 900 MG/NS 50 ML 900 MG/50 ML PIGGYBACK 50 MG IVPB (07:28)
--- NOTE | 2019-12-30 09:03 | PM.PROC ---
Procedure Note - Detailed Date of procedure: 12/30/19 Pre-op diagnosis: OA Right Knee Post-op diagnosis: same Procedure performed: [Right] total knee arthroplasty Description of procedure: The patient was brought to the operating room. General anesthetic was administered. Placed on the operating table and sterilely prepped and draped in usual manner. A longitudinal incision was made. Tourniquet inflated to 300 mmHg for a total of [time] minutes. Dissection carried down to the fascia. Medial parapatellar incision was made and the patella subluxated laterally. Patella cut from [25] to [15] mm and sized for a [34] mm button. The tibia cut perpendicular to the long axis and femur cut in 5 degrees of valgus, a [70] femur trialed. [71] tibia was felt to fit the best. The soft tissue balanced, hemostasis obtained. All [address], [71] tibia, [70] femur, [34] mm patella, and [11] mm poly. Motion was 0-125 degrees with good stablility and flexion and extension. The wound was closed with #2 vicryl, 2-0 Vicryl and alan. Anesthesia: GETA Surgeon: Tex Willis MD Planning Aide: Jair Reynolds Estimated blood loss (mL): 200 Drains: No Packing: No Pathology: none sent Complications: No immediate complications Condition: stable Disposition: PACU Findings: arthritis
[2019-12-30] MEDS: oxyCODONE/ACETAMINOPHEN 5-325 MG TABLET 1 TABLET PO ×2 (11:32→19:30)
--- NOTE | 2019-12-30 16:00 | WPDCN ---
Assessment and Plan Assessment and plan (1) Primary osteoarthritis of left knee: Code(s): M17.12 - Unilateral primary osteoarthritis, left knee Status: Acute Assessment and Plan: Postoperative day 0, status post right total knee arthroplasty. Wound care and pain control will be deferred to the primary service. DVT prophylaxis also deferred to the orthopedic surgeon. (2) Chronic atrial fibrillation: Code(s): I48.20 - Chronic atrial fibrillation, unspecified Status: Acute Assessment and Plan: Rate controlled on metoprolol. Xarelto has been on hold since Saturday in anticipation of surgery. Recommend resuming as soon as possible but will defer to the surgeon. (3) Essential hypertension: Code(s): I10 - Essential (primary) hypertension Status: Acute Assessment and Plan: Blood pressures are well controlled. Continue antihypertensives and monitor daily. (4) Hypothyroidism: Code(s): E03.9 - Hypothyroidism, unspecified Status: Acute Assessment and Plan: Continue levothyroxine. Additional Plan Thank you for allowing us to participate in this patient's care. Please do not hesitate to contact us with any questions. We will follow with you. Supervising physician for this medical consultation is Dr. Julita Ballesteros. HPI Data of Consult Date/Time: 12/30/19 16:00 Requesting Physician: Tex Willis MD Primary Care Provider: Darryl David MD Consult Narrative Narrative: Mahad Castanon is a 79-year-old male whom the hospitalist service has been consulted for management of his chronic medical conditions postoperatively. He estimates he has had pain in his right knee for 10 years, not amenable to conservative outpatient treatment, and thus elected for replacement today. His surgery was performed under general anesthesia with no immediate complications documented an estimated blood loss of 200 mL. he had a nerve block and at the time my evaluation he has no pain at all. He has been up to the chair and up ambulating in the room with a walker without issue. He denies paresthesias, skin color, and temperature changes distal to the surgical site. He also denies postoperative fever, chills, sweats, nausea, vomiting, chest pain, shortness of breath. His medical history significant for chronic atrial fibrillation on long-term Xarelto , which has been held since Saturday in anticipation of the surgery. He has failed previous cardioversion attempts. He sees Dr. jillian alvarez for management of his AFib and is also noted that he has a history of a cardiomyopathy with an ejection fraction as low as 40% in November 2017. The patient tells me that his cardiac function has since normalized. He is also on medication for hypertension, hypothyroidism, and GERD; all controlled with home medication , according to the patient. Review of Systems Review of Systems: Narrative: Twelve systems were reviewed with pertinent positives and negatives as per HPI. No fever, chills, or sweats. No recent cold or flu symptoms. He denies recent travel and sick contacts. No cough or shortness of breath. He denies orthopnea, PND, and lower extremity edema. No history of venous thromboembolism. Except as documented, all other systems were reviewed and are negative. [facility] Past Medical History Medical History (Updated 12/30/19 @ 22:02 by Lauryn Angeles PA-C) Cardiomyopathy Echocardiogram in November 2015 showed mild to moderate global left ventricular systolic dysfunction with severe apical hypokinesis, diastolic dysfunction, and ejection fraction estimated at 40 to 45% as well as moderate biatrial enlargemen
[2019-12-30] MEDS: CELECOXIB 200 MG CAPSULE PO (17:37)
[2019-12-30] MEDS: DOCUSATE SODIUM 100 MG CAPSULE PO (17:37)
[2019-12-30] MEDS: METOPROLOL TARTRATE 25 MG TABLET PO (21:28)
[2019-12-30] MEDS: IRBESARTAN 150 MG TABLET PO (21:30)
[2019-12-30] MEDS: LEVOTHYROXINE SODIUM 50 MCG TABLET PO (21:30)
[2019-12-31 00:28] VITALS: BP 112/72; PULSE 72; RESP 12; TEMP 36.7; O2SAT 98
[2019-12-31 04:28] VITALS: BP 112/66; PULSE 88; RESP 12; TEMP 36.4; O2SAT 99
[2019-12-31 05:52] LABS: Basophils Percent Auto 0.1 % (0.2-1.2); Eosinophils Percent Auto 0.1 % (0-4.4); Hematocrit 40.8 % (42.0-52.0); Immature Granulocyte Absolute 0.08 K/mm3 (0.00-0.031); Immature Granulocyte Percent A 0.6 % (0-0.5); Lymphocytes Absolute Auto 1.23 K/mm3 (0.9-3.2); Lymphocytes Percent Auto 9.7 % (18.3-44.2); Mean Corpuscular HGB Conc 31.9 g/dl (32-36); Mean Corpuscular Hemoglobin 31.4 pg (26-34); Mean Corpuscular Volume 98.6 fl (80-100); Mean Platelet Volume 9.8 fl (7.4-10.4); Monocytes Absolute Auto 1.1 K/mm3 (0.1-0.6); Monocytes Percent Auto 8.7 % (2.6-8.5); Neutrophils Absolute Auto 10.3 K/mm3 (1.3-6.7); Neutrophils Percent Auto 80.8 % (45.5-73.1); Platelet Count Result 242 k/mm3 (150-375); Red Blood Count 4.14 M/mm3 (4.6-6.20); Red Cell Distribution Width 13.7 % (11.5-14.5); White Blood Count 12.7 K/mm3 (4.5-10.0)
[2019-12-31 06:06] LABS: Anion Gap 13.8 mmol/L (7-16); Blood Urea Nitrogen 31 mg/dL (9-20); Calcium 8.7 mg/dL (8.4-10.2); Carbon Dioxide 24 mmol/L (22-30); Chloride 100 mmol/L (98-107); Estimated CRCL calculation 55 ml/min; Estimated Glomerular Filt Rate > 60; Glucose 150 mg/dL (75-110); Potassium 4.8 mmol/L (3.4-5.0); Sodium 133 mmol/L (137-145)
[2019-12-31 06:59] LABS: Thyroid Stimulating Hormone Reflex 0.627 uIU/mL (0.465-4.68)
[2019-12-31 08:15] VITALS: BP 119/83; PULSE 104
[2019-12-31] MEDS: CELECOXIB 200 MG CAPSULE PO (08:37)
[2019-12-31] MEDS: METOPROLOL SUCCINATE EXT REL 50 MG TABCR 150 MG PO (08:38)
[2019-12-31] MEDS: DOCUSATE SODIUM 100 MG CAPSULE PO (08:38)
[2019-12-31] MEDS: FUROSEMIDE 40 MG TABLET PO (08:38)
--- NOTE | 2019-12-31 09:59 | P.PNAN_ITS ---
Anes - Prog Note Post-Op Date/Time: 12/31/19 09:59 Cardiovascular status: normal Respiratory status: normal Airway patency: baseline Mental status: baseline Post-Op hydration status: normal Vital Signs: Last Vital Signs Temp 36.4 C 12/31/19 04:28 Pulse 104 H 12/31/19 08:15 Resp 12 12/31/19 04:28 BP 119/83 12/31/19 08:15 Pulse Ox 99 12/31/19 04:28 I/O: Intake & Output 12/30/19 12/31/19 12/31/19 23:59 07:59 15:59 Intake Total 790 100 120 Output Total 30 Balance 760 100 120 Laboratory Tests 12/31/19 05:03 12/31/19 05:03 12/31/19 12/31/19 12/31/19 05:03 05:03 05:03 WBC 12.7 H RBC 4.14 L Hgb 13.0 L D Hct 40.8 L MCV 98.6 MCH 31.4 MCHC 31.9 L RDW 13.7 Plt Count 242 MPV 9.8 Immature Gran % (Auto) 0.6 H Neut % (Auto) 80.8 H Lymph % (Auto) 9.7 L [place] % (Auto) 8.7 H Eos % (Auto) 0.1 Baso % (Auto) 0.1 L Lymph # (Auto) 1.23 [place] # (Auto) 1.1 H Eos # (Auto) 0.0 Baso # (Auto) 0.0 Abs Immat Gran (auto) 0.08 H Absolute Neuts (auto) 10.3 H Absolute Nucleated RBC 0.0 Nucleated RBC % 0.0 Sodium 133 L Potassium 4.8 Chloride 100 Carbon Dioxide 24 Anion Gap 13.8 BUN 31 H D Creatinine 1.10 Estim Creat Clear Calc 55 Estimated GFR > 60 Glucose 150 H Calcium 8.7 TSH (Reflex) 0.627 Post-procedural complaints: none Patient Feedback: Patient satisfied with anesthetic care.
[2019-12-31 10:00] VITALS: BP 108/55; PULSE 113; RESP 17; TEMP 36.7; O2SAT 97
--- NOTE | 2019-12-31 12:23 | PM.PNORT ---
Progress Note: A&P Additional Plan Patient is postop day 1 status post right total knee arthroplasty, diagnosis of severe primary osteoarthritis right knee joint. Patient is doing well without postoperative complications. He is now deemed stable for discharge to home. See discharge orders and discharge summary patient voiced understanding agrees above plan. Time Spent With Patient Time with patient: less than 15 minutes Subjective Subjective Date/Time Seen: 12/31/19 12:23 Patient is doing well postop day 1 without complaints. Patient's pain is well controlled he tolerated physical therapy well. He is eating and tolerating p.o. well and is requesting discharge to home today. He has been through a total knee arthroplasty before and knows what to expect and is doing quite well. Review of Systems Review of Systems: All systems reviewed & are unremarkable except as noted in HPI and below Exam Narrative: Exam Narrative: Vital signs stable, afebrile, neurovascularly is intact. Wound right knee is clean and dry. Calves are benign. Patient ambulates well with a walker and is otherwise stable. He is able to do a straight leg raise his knee is functioning nicely status post total knee arthroplasty. Objective Data Vital Signs Vital Signs: Vital Signs - 24 hr 12/30/19 12:40 12/30/19 14:00 12/30/19 18:31 Temperature 36.2 C L 36.1 C L 36.1 C L Pulse Rate 53 L 84 53 L Respiratory Rate 18 18 18 Blood Pressure 142/86 H 110/85 101/67 Pulse Oximetry 99 98 98 12/30/19 20:28 12/30/19 21:28 12/31/19 00:28 Temperature 36.4 C 36.7 C Pulse Rate 99 84 72 Respiratory Rate 12 12 Blood Pressure 128/72 112/72 Pulse Oximetry 98 98 12/31/19 04:28 12/31/19 08:15 12/31/19 10:00 Temperature 36.4 C 36.7 C Pulse Rate 88 104 H 113 H Respiratory Rate 12 17 Blood Pressure 112/66 119/83 108/55 L Pulse Oximetry 99 97 Intake/Output Intake/Output: Intake & Output 12/28/19 12/29/19 12/30/19 12/31/19 23:59 23:59 23:59 23:59 Intake Total 2079 370 Output Total Balance 2049 370 Meds/Results Medications: Active Medications Generic Name Dose Route Start Last Admin Trade Name Freq PRN Reason Stop Dose Admin Hydrocodone Bitart/Acetaminophen 1 tab 12/30/19 13:00 12/31/19 08:37 [place] 7.5-325 Mg PO 1 tab Q4HR KENNETH Administration Celecoxib 200 mg 12/30/19 17:00 12/31/19 08:37 Celebrex PO 200 mg BIDWM KENNETH Administration Docusate Sodium 100 mg 12/30/19 17:00 12/31/19 08:38 Colace Capsule PO 100 mg BID KENNETH Administration Furosemide 40 mg 12/31/19 09:00 12/31/19 08:38 Lasix Tablet PO 40 mg QAM KENNETH Administration Irbesartan 150 mg 12/30/19 21:00 12/30/19 21:30 Avapro PO 150 mg HS KENNETH Administration Levothyroxine Sodium 50 mcg 12/30/19 21:00 12/30/19 21:30 Synthroid PO 50 mcg HS KENNETH Administration Metoprolol Succinate 150 mg 12/31/19 09:00 12/31/19 08:38 Toprol Xl PO 150 mg QAM KENNETH Administration Metoprolol Tartrate 25 mg 12/30/19 21:00 12/30/19 21:28 Lopressor PO 25 mg HS KENNETH Administration Morphine Sulfate 4 mg 12/30/19 10:43 Morphine Sulfate Inj IV PUSH Q2H PRN Breakthrough pain rated 7-10 Naloxone HCl 0.1 mg 12/30/19 10:43 Narcan IV PUSH Q2M PRN Opiate Reversal Oxycodone/Acetaminophen 1 tablet 12/30/19 10:43 12/30/19 19:30 Percocet 5-325 Mg PO 1 tablet Q4H PRN Administration Pain Rated 4-6 Rivaroxaban 20 mg 12/30/19 21:00 12/30/19 21:30 Xarelto PO Not Given HS KENNETH Radiology Results: ITS Impressions Knee X-Ray 12/30/19 10:14 IMPRESSION: 1. Total right knee arthroplasty in near-anatomic alignment. Labs Labs: Laboratory Results - last 24 hr 12/31/19 12/31/19 12/31/19 05:03 05:03 05:03 WBC 12.7 H RBC 4.14 L Hgb 13.0 L D Hct 40.8 L MCV 98.6 MCH 31.4 MCHC 31.9 L RDW 13.7 Plt Count 242 MPV 9.8 Maria Teresa
--- NOTE | 2019-12-31 12:30 | PM.DS ---
DS: Admitting Diagnosis Admitting Diagnosis Admitting Diagnosis: Unilateral primary osteoarthritis, right knee Discharge Diagnosis same status post right total knee arthroplasty. DS: Summary Time Spent with Patient Time attestation: Total time spent providing and/or coordinating discharge services: Exam Narrative: Exam Narrative: Vital signs stable afebrile neurovascular is intact wound is clean and dry, calves are benign, pain is well controlled with good function instability in the right knee status post total knee arthroplasty. Patient is stable postop day 1. DS: Data Data Completed and Pending Labs on day of discharge: Labs from last 24 hours 12/31/19 12/31/19 12/31/19 05:03 05:03 05:03 WBC 12.7 H RBC 4.14 L Hgb 13.0 L D Hct 40.8 L MCV 98.6 MCH 31.4 MCHC 31.9 L RDW 13.7 Plt Count 242 MPV 9.8 Immature Gran % (Auto) 0.6 H Neut % (Auto) 80.8 H Lymph % (Auto) 9.7 L [place] % (Auto) 8.7 H Eos % (Auto) 0.1 Baso % (Auto) 0.1 L Lymph # (Auto) 1.23 [place] # (Auto) 1.1 H Eos # (Auto) 0.0 Baso # (Auto) 0.0 Abs Immat Gran (auto) 0.08 H Absolute Neuts (auto) 10.3 H Absolute Nucleated RBC 0.0 Nucleated RBC % 0.0 Sodium 133 L Potassium 4.8 Chloride 100 Carbon Dioxide 24 Anion Gap 13.8 BUN 31 H D Creatinine 1.10 Estim Creat Clear Calc 55 Estimated GFR > 60 Glucose 150 H Calcium 8.7 TSH (Reflex) 0.627 Discharge Plan Discharge Patient Disposition: Home, Self-Care Discharge Instructions: Patient is discharged home stable condition general diet activity as tolerated, weight-bearing as tolerated right lower extremity with a walker at all times. The patient will start physical therapy per total knee protocol beginning early next week at our office. Patient will keep the wound clean and dry water evidence of drainage or infection change dressing daily. Patient be discharged with [place] 7 5 mg 1-2 tabs every 4-6 hours p.r.n. pain. The patient is typically on Xarelto 20 mg daily and when he gets home he will resume this. This is per his environmental aide's instructions. Patient is to follow up at 2 weeks postop for staple removal and wound recheck. Patient is instructed call the office immediately at [phone] for any problems difficulties or questions. Patient voiced understanding agrees above plan. Admitting diagnosis was severe primary osteoarthritis right knee joint. Discharge diagnosis is status post right total knee arthroplasty. Patient Instructions: Rivaroxaban (By mouth), Precautions after Total Joint Replacement Surgery (DC), Knee Replacement (DC) Stand Alone Forms: Avoid NSAIDs, General Discharge Instructions Follow-up/Referrals: Tex Willis MD [Physician] - Discharge Medications: New hydrocodone-acetaminophen 7.5-325 mg Tablet 1 tab PO Q4HR Qty: 50 RF: 0 Continued furosemide 40 mg Tablet 40 mg QAM RF: 0 metoprolol succinate 50 mg Tablet Extended Release 24 Hr 150 mg PO QAM RF: 0 levothyroxine 50 mcg Tablet 50 mcg PO HS RF: 0 irbesartan 150 mg Tablet 150 mg PO HS RF: 0 Xarelto 20 mg Tablet 20 mg PO HS RF: 0 metoprolol tartrate 25 mg tablet 25 mg PO HS RF: 0 multivitamin [Daily Multi-Vitamin] Tablet 1 tablet PO DAILY RF: 0 cyanocobalamin (vitamin B-12) [Vitamin B-12] 1,000 mcg Tablet 1,000 mcg PO DAILY RF: 0
--- NOTE | 2019-12-31 13:43 | PM.IMPN ---
Progress Note: A&P Assessment and Plan (1) Primary osteoarthritis of left knee: Code(s): M17.12 - Unilateral primary osteoarthritis, left knee Status: Acute Assessment and Plan: Postoperative day 1, status post right total knee arthroplasty. Wound care and pain control per Ortho DVT prophylaxis also deferred to the orthopedic surgeon and Xarelto will be restarted per Cardiology will discharge when okay with Orthopedic surgery (2) Chronic atrial fibrillation: Code(s): I48.20 - Chronic atrial fibrillation, unspecified Status: Acute Assessment and Plan: Rate controlled on metoprolol. Xarelto has been on hold since Saturday in anticipation of surgery. Recommend resuming as soon as possible but but patient states that cardiology wanted him off for a total of 1 week (3) Essential hypertension: Code(s): I10 - Essential (primary) hypertension Status: Acute Assessment and Plan: Blood pressures are well controlled. Continue antihypertensives , beta-deejay and ARB (4) Hypothyroidism: Code(s): E03.9 - Hypothyroidism, unspecified Status: Acute Assessment and Plan: Continue levothyroxine. Subjective Date/time seen: 12/31/19 13:43 79-year-old hypertensive white male with history heart failure and paroxysmal AFib underwent right total knee12/30 and doing well today. some pain as expected but no chest pain or palpitation or shortness of breath. left total knee earlier in the year and audio visual manager wants him off of his Xarelto for 1 week before restarting Exam Narrative: Exam Narrative: blood pressure 108/56 pulse is 100 with ectopics afebrile lungs clear CV has above regular with ectopics extremities without edema distal pulses are 2+ ice pack to right knee not removed neuro alert cooperative no focal deficits Objective Data Vital Signs Vital Signs: Vital Signs - 24 hr 12/30/19 14:00 12/30/19 18:31 12/30/19 20:28 Temperature 36.1 C L 36.1 C L 36.4 C Pulse Rate 84 53 L 99 Respiratory Rate 18 18 12 Blood Pressure 110/85 101/67 128/72 Pulse Oximetry 98 98 98 12/30/19 21:28 12/31/19 00:28 12/31/19 04:28 Temperature 36.7 C 36.4 C Pulse Rate 84 72 88 Respiratory Rate 12 12 Blood Pressure 112/72 112/66 Pulse Oximetry 98 99 12/31/19 08:15 12/31/19 10:00 Temperature 36.7 C Pulse Rate 104 H 113 H Respiratory Rate 17 Blood Pressure 119/83 108/55 L Pulse Oximetry 97 Intake/Output Intake/Output: Intake & Output 12/28/19 12/29/19 12/30/19 12/31/19 23:59 23:59 23:59 23:59 Intake Total 2080 610 Output Total 30 200 Balance 2049 410 Meds/Results Medications: Active Medications Generic Name Dose Route Start Last Admin Trade Name Freq PRN Reason Stop Dose Admin Hydrocodone Bitart/Acetaminophen 1 tab 12/30/19 13:00 12/31/19 12:39 [place] 7.5-325 Mg PO 1 tab Q4HR KENNETH Administration Celecoxib 200 mg 12/30/19 17:00 12/31/19 08:37 Celebrex PO 200 mg BIDWM KENNETH Administration Docusate Sodium 100 mg 12/30/19 17:00 12/31/19 08:38 Colace Capsule PO 100 mg BID KENNETH Administration Furosemide 40 mg 12/31/19 09:00 12/31/19 08:38 Lasix Tablet PO 40 mg QAM KENNETH Administration Irbesartan 150 mg 12/30/19 21:00 12/30/19 21:30 Avapro PO 150 mg HS KENNETH Administration Levothyroxine Sodium 50 mcg 12/30/19 21:00 12/30/19 21:30 Synthroid PO 50 mcg HS KENNETH Administration Metoprolol Succinate 150 mg 12/31/19 09:00 12/31/19 08:38 Toprol Xl PO 150 mg QAM KENNETH Administration Metoprolol Tartrate 25 mg 12/30/19 21:00 12/30/19 21:28 Lopressor PO 25 mg HS KENNETH Administration Morphine Sulfate 4 mg 12/30/19 10:43
== END 2019-12-31 15:24 | disposition home or self-care (01) ==
LOC: ANHSURGERY 05:52 → ANH2MED 10:52
PROVIDERS: Physician Assistant; PCP Family Medicine; Visit Provider Orthopaedic Surgery
PROC: (CPT 27447; principal; 2019-12-30 07:30)
DX: M17.11 Unilateral primary osteoarthritis, right knee (principal); G89.18 Other acute postprocedural pain; I48.20 Chronic atrial fibrillation, unspecified; I10 Essential (primary) hypertension; E03.9 Hypothyroidism, unspecified; K21.9 Gastro-esophageal reflux disease without esophagitis; Z87.891 Personal history of nicotine dependence; E66.9 Obesity, unspecified; Z68.30 Body mass index [BMI] 30.0-30.9, adult; Z79.01 Long term (current) use of anticoagulants
CPT/HCPCS: 27447; 64447; 36415; 73560; 80048; 84443; 85025; 97110; 97116; 97161; 97165; 97530; A9270; C1713; C1776; J0171; J1100; J1170; J1885; J2250; J2270; J2370; J2405; J2704; J2795; J3010; J3370; J7120

== ENCOUNTER 2020-01-20 11:05 | Emergency (ER) | payer MEDICARE, OTHER, SELFPAY ==
--- NOTE | ~2020-01-20 | XR_ITS ---
EXAMINATION: XR humerus RT DATE: 01/20/2020 15:01 INDICATION: Right upper arm pain. TECHNIQUE: 2 views of right humerus on 3 radiographs were obtained. COMPARISON: None. FINDINGS: Bone alignment is normal. No fracture. There is severe osteoarthritis of glenohumeral joint and acromioclavicular joint. IMPRESSION: 1. Polyarticular osteoarthritis. Reviewed, dictated and finalized at location A.
--- NOTE | ~2020-01-20 | CT_ITS ---
EXAMINATION: CT abdomen pelvis w con INDICATION: Abdominal pain and constipation TECHNIQUE: Computed tomographic images of the abdomen and pelvis were obtained after the administrati on of 100 cc of Omnipaque 350 intravenous contrast. The dose-length product (DLP) was 951.21 mGy-cm. Automated exposure control and iterative reconstruction technique were employed. COMPARISON: 04/27/2019 FINDINGS: Minimal dependent atelectasis is present in the lung bases. There is stable cardiomegaly. T here is a 6 mm hyperenhancing lesion of the left hepatic lobe which is considered benign in the absen ce of known malignancy or risk factors. The spleen, pancreas, gallbladder, and adrenal glands are nor mal. Cysts of the kidneys measure up to 1.3 cm on the left. There is no free intraperitoneal gas or e vidence of bowel obstruction. There is calcified atherosclerosis of the aorta and many of the other a rteries. No pathologically enlarged abdominal or pelvic lymph nodes are identified. There is a large volume of stool in the rectum. There is a moderate volume of colonic stool elsewhere in the colon. Co lonic diverticulosis is present without evidence of diverticulitis. There is moderate right hip osteo arthritis. There are bridging osteophytes at multiple levels in the thoracic spine, consistent with d iffuse idiopathic skeletal hyperostosis (DISH). There is moderate lumbar spondylosis. Changes of pros tatectomy and pelvic lymph node dissection are noted. A tiny fat-containing umbilical hernia is prese nt. IMPRESSION: 1. Large volume of stool in the rectum and moderate volume of stool elsewhere in the colon. Reviewed, dictated and finalized at location A. IMPRESSION: 1. Large volume of stool in the rectum and moderate volume of stool elsewhere i n the colon.
[2020-01-20 11:13] VITALS: BP 143/95; PULSE 107; RESP 20; TEMP 36.8; O2SAT 98
--- NOTE | 2020-01-20 12:03 | ED.GENADULT ---
HPI - General Adult General Chief complaint: Unspecified Stated complaint: NO BM FOR 10DAYS Time Seen by Provider: 01/20/20 12:03 Source: patient Mode of arrival: ambulatory Limitations: no limitations History of Present Illness HPI narrative: Patient is a 79-year-old male with a history of congestive heart failure, atrial fibrillation, COPD, hypertension who presents for evaluation of abdominal distention and constipation. Patient states that he has had no bowel movement for 10 days. Not passing any gas. No diarrhea. He denies fever, chills, nausea vomiting. He denies any abdominal pain or fullness. No difficulty with urination. No history of constipation in the past. Patient states he had right knee surgery December 29 and has been taking Vicodin. He states he discontinued this medication 5 days ago as he has not been having any pain issues in his knee but since developed constipation. Patient states he has not been taking colace without much improvement. Related Data Home Medications Medication Instructions Recorded Confirmed Xarelto 20 mg PO HS 04/27/19 12/30/19 furosemide 40 mg QAM 04/27/19 12/30/19 irbesartan 150 mg PO HS 04/27/19 12/30/19 levothyroxine 50 mcg PO HS 04/27/19 12/30/19 metoprolol succinate 150 mg PO QAM 04/27/19 12/30/19 metoprolol tartrate 25 mg PO HS 05/21/19 12/30/19 cyanocobalamin (vitamin B-12) 1,000 mcg PO DAILY 07/15/19 12/30/19 [Vitamin B-12] multivitamin [Daily Multi-Vitamin] 1 tablet PO DAILY 07/15/19 12/30/19 Allergies Allergy/AdvReac Type Severity Reaction Status Date / Time Sulfa (Sulfonamide Allergy Mild Rash, Verified 01/20/20 11:19 Antibiotics) ITCHING, HIVES Penicillins Allergy Unknown Rash, Verified 01/20/20 11:19 ITCHING, HIVES cephalexin [From Keflex] Allergy Hives Verified 01/20/20 11:19 Review of Systems Review of Systems: Narrative: CONSTITUTIONAL: Denies fever ENT: Denies rhinorrhea, congestion, sore throat, or otalgia. CARDIOVASCULAR: Denies chest pain GASTROINTESTINAL: Denies abdominal pain, nausea, vomiting, or diarrhea. Reports constipation. GENITOURINARY: Denies dysuria or hematuria. SKIN: Denies rash or itching. MUSCULOSKELETAL: Denies back pain NEUROLOGIC: Denies headache . [facility] Past Medical History Medical History Cardiomyopathy Echocardiogram in November 2015 showed mild to moderate global left ventricular systolic dysfunction with severe apical hypokinesis, diastolic dysfunction, and ejection fraction estimated at 40 to 45% as well as moderate biatrial enlargement, and moderate pulmonary hypertension. Ejection fraction has reportedly normalized, according to the patient. Chronic atrial fibrillation Has failed previous cardioversion attempts. On metoprolol for rate control and Xarelto for stroke prophylaxis. Chronic obstructive pulmonary disease Documented in the chart, however patient denies formal diagnosis of such. Essential hypertension Gastroesophageal reflux disease Hypothyroidism Prostate cancer Status post prostatectomy. Surgical History Surgical History History of arthroscopy of both knees History of bilateral cataract extraction History of bilateral knee arthroplasty Left knee: 07/15/2019. Right knee: 12/30/2019. History of lipoma Excision of lipoma from neck. History of prostatectomy (~1998) For prostate cancer. History of tonsillectomy History of transurethral resection of prostate Family History Family History Other Acute myocardial infarction Cerebrovascular accident Dementia Hypertension Social History Social History Social History: Surrogate decision maker: Nancy Castanon, spouse. Code status: Full code. Smoking packs per day: 1.5 Smoking cigarettes per day: 30.0 Y
[2020-01-20 12:37] LABS: Basophils Absolute Auto 0.1 K/mm3 (0.0-0.1); Basophils Percent Auto 0.4 % (0.2-1.2); Eosinophils Percent Auto 0.2 % (0-4.4); Hematocrit 40.9 % (42.0-52.0); Hemoglobin 13.3 g/dL (14.0-18.0); Immature Granulocyte Absolute 0.04 K/mm3 (0.00-0.031); Immature Granulocyte Percent A 0.3 % (0-0.5); Lymphocytes Percent Auto 13.8 % (18.3-44.2); Mean Corpuscular HGB Conc 32.5 g/dl (32-36); Mean Corpuscular Hemoglobin 31.3 pg (26-34); Mean Corpuscular Volume 96.2 fl (80-100); Mean Platelet Volume 9.7 fl (7.4-10.4); Monocytes Absolute Auto 1.2 K/mm3 (0.1-0.6); Monocytes Percent Auto 10.2 % (2.6-8.5); Neutrophils Absolute Auto 8.7 K/mm3 (1.3-6.7); Neutrophils Percent Auto 75.1 % (45.5-73.1); Platelet Count Result 428 k/mm3 (150-375); Red Blood Count 4.25 M/mm3 (4.6-6.20); Red Cell Distribution Width 13.7 % (11.5-14.5); White Blood Count 11.6 K/mm3 (4.5-10.0)
[2020-01-20 12:48] LABS: Alanine Aminotransferase 13 U/L (4-50); Albumin Level 4.1 g/dL (3.5-5.1); Alkaline Phosphatase 129 U/L (38-126); Anion Gap 11 mmol/L (8-16); Aspartate Amino Transferase 19 U/L (17-59); Bilirubin,Total 0.6 mg/dL (0.2-1.3); Blood Urea Nitrogen 15 mg/dL (9-20); Calcium 9.3 mg/dL (8.4-10.2); Carbon Dioxide 26 mmol/L (22-30); Chloride 101 mmol/L (98-107); Estimated CRCL calculation 61 ml/min; Estimated Glomerular Filt Rate > 60; Glucose 146 mg/dL (75-110); Lipase 20 U/L (23-300); Potassium 3.8 mmol/L (3.4-5.0); Sodium 138 mmol/L (137-145)
[2020-01-20 15:14] VITALS: BP 141/95; PULSE 100; RESP 22; TEMP 36.6; O2SAT 96
== END 2020-01-20 15:29 | disposition home or self-care (01) ==
PROVIDERS: Emergency Provider Emergency Medicine; PCP Family Medicine
DX: K59.00 Constipation, unspecified (principal); Z87.891 Personal history of nicotine dependence; I48.91 Unspecified atrial fibrillation; J44.9 Chronic obstructive pulmonary disease, unspecified; I10 Essential (primary) hypertension; K21.9 Gastro-esophageal reflux disease without esophagitis; E03.9 Hypothyroidism, unspecified; Z85.46 Personal history of malignant neoplasm of prostate; Z90.79 Acquired absence of other genital organ(s); Z98.42 Cataract extraction status, left eye; Z98.41 Cataract extraction status, right eye
CPT/HCPCS: 36415; 73060; 74177; 80053; 83690; 85025; 99284; Q9967

== ENCOUNTER 2020-05-02 09:46 | Outpatient (CLI) | payer MEDICARE, OTHER, SELFPAY ==
--- NOTE | ~2020-05-02 | NM_ITS ---
EXAMINATION: NM bone scan whole body DATE: 05/02/2020 13:59 INDICATION: Prostate cancer. TECHNIQUE: 22.4 mCi Tc-99m HDP was administered intravenously. Delayed whole-body scintigrams were o btained. COMPARISON: CT abdomen and pelvis 05/02/2020, bone scan 01/04/15, right knee radiographs 12/30/2019, lef t knee radiographs 07/15/2019 FINDINGS: There are bilateral knee arthroplasties. There is increased activity adjacent to the arthro plasty is, which is normal given the short time since the surgeries. There is joint-centered increase d activity in the feet, wrists, shoulders, and sternoclavicular joints, likely osteoarthritis. IMPRESSION: 1. No evidence of metastatic disease. Reviewed, dictated and finalized at location A. [facility]
--- NOTE | ~2020-05-02 | CT_ITS ---
EXAMINATION: CT abdomen pelvis w con DATE: 05/02/2020 10:41 INDICATION: Prostate cancer TECHNIQUE: Computed tomography (CT) of the abdomen and pelvis was performed without intravenous contr ast. The dose-length product was 644.16 mGy-cm. Automated exposure control and iterative reconstructi on technique were employed. COMPARISON: CT dated 01/20/2020 FINDINGS: Lung bases are unremarkable. No significant pleural or pericardial effusion. Cardiomegaly.. Fatty infiltration of the liver. The spleen, pancreas, adrenal glands are unremarkable. There is bila teral renal cortical scarring. Small subcentimeter hypodensity left kidney, most likely benign cysts. Gallbladder is present. Hyperenhancing lesion of the left hepatic lobe seen on prior CT not apprecia jose on the current study. Nonobstructive bowel gas pattern. No abnormal pelvic masses or fluid collec tions. Prostate gland is surgically absent. No lymphadenopathy. There is atherosclerosis. There is mo derate osteoarthritis of the right hip. There is moderate lumbar spondylosis. Tiny fat-containing umb ilical hernia. No evidence for osseous metastases. IMPRESSION: 1. No evidence for metastatic disease. Reviewed, dictated and finalized at location B. BOOKER
[2020-05-02 10:33] LABS: Estimated Glomerular Filt Rate 59
== END 2020-05-02 09:47 | disposition home or self-care (01) ==
PROVIDERS: PCP Family Medicine; Visit Provider Urology
DX: C61 Malignant neoplasm of prostate (principal)
CPT/HCPCS: 74177; 78306; A9561; Q9967

== ENCOUNTER 2024-02-13 13:40 | Inpatient (IN) | payer MEDICARE, SELFPAY ==
[2024-02-13] VITALS (11 sets, daily range): BP systolic 131–146; BP diastolic 81–120; PULSE 81–130; RESP 15–20; TEMP 36.1–36.3; O2SAT 94–100
--- NOTE | ~2024-02-13 | XR_ITS ---
EXAMINATION: XR chest 2V DATE: 02/13/2024 15:38 INDICATION: Shortness of breath. TECHNIQUE: Frontal and lateral views of the chest were obtained. COMPARISON: None. FINDINGS: There are small pleural effusions. There are airspace opacities at the lung bases. No pneum othorax. Cardiomegaly is noted. IMPRESSION: 1. Small pleural effusions. 2. Airspace opacities at the lung bases, consistent with atelectasis versus pneumonia. 3. Cardiomegaly. Reviewed, dictated and finalized at location A. IMPRESSION: 1. Small pleural effusions. 2. Airspace opacities at the lung bases, consistent with atelectasis versus pne umonia. 3. Cardiomegaly.
--- NOTE | 2024-02-13 13:46 | ECG_ITS ---
Test Date: 2024-02-13 13:50:56 Measurements Intervals [place] Rate: 111 P: 0 MS: 0 QRS: 137 QRSD: 150 T: -20 QT: 378 QTc: 516 Interpretive Statements ATRIAL FIBRILLATION WITH RAPID VENTRICULAR RESPONSE RIGHT AXIS DEVIATION RIGHT BUNDLE BRANCH BLOCK HIGH LATERAL INFARCT, AGE INDETERMINATE BASELINE ARTIFACT- I, III ABNORMAL ECG No previous ECG available for comparison Electronically Signed On 02-13-2024 14:06:08 CDT by Kiko Shore D.O.
[2024-02-13 14:02] LABS: Basophils Percent Auto 0.5 % (0.2-1.2); Eosinophils Percent Auto 0.5 % (0-4.4); Hematocrit 47.2 % (42.0-52.0); Hemoglobin 15.2 g/dL (14.0-18.0); Immature Granulocyte Absolute 0.04 K/mm3 (0.00-0.031); Immature Granulocyte Percent A 0.5 % (0-0.5); Lymphocytes Absolute Auto 1.46 K/mm3 (0.9-3.2); Lymphocytes Percent Auto 19.8 % (18.3-44.2); Mean Corpuscular HGB Conc 32.2 g/dl (32-36); Mean Corpuscular Hemoglobin 31.5 pg (26-34); Mean Corpuscular Volume 97.7 fl (80-100); Mean Platelet Volume 9.9 fl (7.4-10.4); Monocytes Absolute Auto 0.6 K/mm3 (0.1-0.6); Monocytes Percent Auto 8.3 % (2.6-8.5); Neutrophils Absolute Auto 5.2 K/mm3 (1.3-6.7); Neutrophils Percent Auto 70.4 % (45.5-73.1); Nucleated Red Blood Cells Perc 0.3 % (0.0-0.2); Platelet Count Result 225 k/mm3 (150-375); Red Blood Count 4.83 M/mm3 (4.6-6.20); Red Cell Distribution Width 16.5 % (11.5-14.5); White Blood Count 7.4 K/mm3 (4.5-10.0)
[2024-02-13 14:13] LABS: INR 3.6; Prothrombin Time 36.3 Seconds (11.1-14.7)
[2024-02-13 14:14] LABS: Partial Thromboplastin Time 36.9 Seconds (22.3-36.8)
[2024-02-13 14:22] LABS: Alanine Aminotransferase 24 U/L (6-50); Albumin Level 3.8 g/dL (3.5-5.1); Alkaline Phosphatase 141 U/L (38-126); Anion Gap 17 mmol/L (4-12); Aspartate Amino Transferase 26 U/L (17-59); Bilirubin,Total 1.7 mg/dL (0.2-1.3); Blood Urea Nitrogen 17 mg/dL (9-20); Calcium 9.1 mg/dL (8.4-10.2); Carbon Dioxide 19 mmol/L (22-30); Chloride 102 mmol/L (98-107); Estimated CRCL calculation 52 ml/min; Estimated Glomerular Filt Rate > 60; Glucose 135 mg/dL (65-110); Lipase 35 U/L (23-300); Potassium 4.1 mmol/L (3.4-5.0); Sodium 138 mmol/L (137-145)
--- NOTE | 2024-02-13 15:00 | ED.SOB ---
HPI - SOB/Dyspnea General Chief Complaint: Shortness of Breath/Dyspnea Stated Complaint: sob Time Seen by Provider: 02/13/24 14:53 History of Present Illness HPI Narrative: Patient is an 83-year-old male who presents ER with shortness of breath. Ongoing over last week. Increased shortness of breath with exertion but worsening last night with increased orthopnea. Patient has history of CHF as well as AFib atrial fibrillation. Reports compliance with home medications. No chest pain or chest pressure. Denies fevers or chills or productive cough. Patient found to be AFib RVR on arrival. Related Data Home Medications Medication Instructions Recorded Confirmed irbesartan 150 mg tablet 150 mg PO HS 04/27/19 12/17/23 rivaroxaban 20 mg tablet (Xarelto) 20 mg PO HS 04/27/19 12/17/23 metoprolol succinate 100 mg 200 mg PO DAILY 04/12/23 12/17/23 tablet,extended release 24 hr Allergies Allergy/AdvReac Type Severity Reaction Status Date / Time Sulfa (Sulfonamide Allergy Mild Rash, Verified 04/12/23 13:10 Antibiotics) ITCHING, HIVES Penicillins Allergy Unknown Rash, Verified 04/12/23 13:10 ITCHING, HIVES cephalexin [From Keflex] Allergy Hives Verified 04/12/23 13:10 Review of Systems Review of Systems: All systems reviewed & are unremarkable except as noted in HPI and below Constitutional: Constitutional: Reports no additional constitutional complaints ENT: Reports system reviewed and no additional complaints, except as documented Cardiovascular: Cardiovascular: Denies chest pain, Reports rapid heart rate and Denies radiating jaw, neck or arm pain Respiratory: Respiratory: Denies chest congestion, Denies cough, Reports dyspnea and Denies wheezing Gastrointestinal: Gastrointestinal: Reports no additional gastrointestinal complaints Musculoskeletal: Musculoskeletal: Reports no additional musculoskeletal complaints [facility] Past Medical History Medical History (Updated 02/13/24 @ 19:27 by Ed Tapia MD) Cardiomyopathy Echocardiogram in November 2015 showed mild to moderate global left ventricular systolic dysfunction with severe apical hypokinesis, diastolic dysfunction, and ejection fraction estimated at 40 to 45% as well as moderate biatrial enlargement, and moderate pulmonary hypertension. Ejection fraction has reportedly normalized, according to the patient. Chronic atrial fibrillation Has failed previous cardioversion attempts. On metoprolol for rate control and Xarelto for stroke prophylaxis. Chronic obstructive pulmonary disease Documented in the chart, however patient denies formal diagnosis of such. Congestive heart failure Diabetes mellitus type 2, controlled Essential hypertension Gastroesophageal reflux disease History of prostate cancer Hyperlipidemia Hypothyroidism Osteoarthritis Surgical History Surgical History (Updated 11/13/23 @ 12:44 by Danyelle Tyson, PA-C) History of bilateral cataract extraction History of bilateral knee arthroplasty Left knee: 07/15/2019. Right knee: 12/30/2019. History of lipoma Excision of lipoma from neck. History of prostatectomy (~1998) For prostate cancer. History of shoulder surgery left 2002 History of tonsillectomy 194 History of transurethral resection of prostate Family History Family History Other Acute myocardial infarction Cerebrovascular accident Dementia Hypertension Social History Social History Social History: Surrogate decision maker: Nancy Castanon, spouse. Code status: Full code. Smoking packs per day: 1.5 Smoking cigarettes per day: 30.0 Years smoked: 58 Smoking pack-years: 87.00 Smoking status: Former smoker Tobacco type: cigarettes Additional smoking assessment comments: Patient smoked 1.5 packs of cigarettes per day from the age of 15 until Alcohol intake: former Dri
[2024-02-13] MEDS: dilTIAZem HCl INJ 25 MG/5 ML VIAL 15 MG IV PUSH (15:08)
[2024-02-13 15:36] LABS: NT Pro B Type Natriuretic Pept 13500 pg/mL (19.9-100)
[2024-02-13] MEDS: FUROSEMIDE INJ 40 MG/4 ML VIAL IV PUSH ×2 (16:06→21:11)
[2024-02-13 17:25] LABS: Troponin I 0.053 ng/mL (0.000-0.034)
--- NOTE | 2024-02-13 18:19 | PC.NURSE ---
Pt given sandwich, pretzels, pudding, and diet soda.
--- NOTE | 2024-02-13 19:49 | PM.IMHP ---
H&P: HPI History of Present Illness Date/Time: 02/13/24 19:49 Chief Complaint: sob Narrative: This is an 83-year-old male with past medical history significant atrial fibrillation, chronotropic pulmonary disease, cardiomyopathy, congestive heart failure, type diabetes mellitus, in gastroesophageal reflux disease, essential hypertension, hypothyroidism, dyslipidemia. Patient presents to the emergency room due to shortness of breath with minimal exertion, worsening bilateral lower extremity swelling. in emergency room patient was found to have accelerated heart rate found to be in AFib with rapid ventricular response. Preliminary workup was significant for breaking natriuretic peptide 13,000, chest x-ray with was significant for infiltrate. Patient has been admitted for further evaluation management and treatment. EXAMINATION: XR chest 2V DATE: 02/13/2024 15:38 INDICATION: Shortness of breath. TECHNIQUE: Frontal and lateral views of the chest were obtained. COMPARISON: None. FINDINGS: There are small pleural effusions. There are airspace opacities at the lung bases. No pneumothorax. Cardiomegaly is noted. IMPRESSION: 1. Small pleural effusions. 2. Airspace opacities at the lung bases, consistent with atelectasis versus pneumonia. 3. Cardiomegaly. Review of Systems Review of Systems: sob, fatigue, decreased stamina PMFSH Past Medical History Medical History (Updated 02/17/24 @ 11:44 by Noemy Coy, MEDIA INTERN-C) Cardiomyopathy Echocardiogram in November 2015 showed mild to moderate global left ventricular systolic dysfunction with severe apical hypokinesis, diastolic dysfunction, and ejection fraction estimated at 40 to 45% as well as moderate biatrial enlargement, and moderate pulmonary hypertension. Ejection fraction has reportedly normalized, according to the patient. Chronic atrial fibrillation Has failed previous cardioversion attempts. On metoprolol for rate control and Xarelto for stroke prophylaxis. Chronic obstructive pulmonary disease Documented in the chart, however patient denies formal diagnosis of such. Congestive heart failure Diabetes mellitus type 2, controlled Essential hypertension Gastroesophageal reflux disease History of prostate cancer Hyperlipidemia Hypothyroidism Osteoarthritis Surgical History Surgical History (Updated 11/13/23 @ 12:44 by Danyelle Tyson, PA-C) History of bilateral cataract extraction History of bilateral knee arthroplasty Left knee: 07/15/2019. Right knee: 12/30/2019. History of lipoma Excision of lipoma from neck. History of prostatectomy (~1998) For prostate cancer. History of shoulder surgery left 2003 History of tonsillectomy 1946 History of transurethral resection of prostate Family History Family History Mother Cerebrovascular accident Dementia Hypertension Acute myocardial infarction Father Dementia Acute myocardial infarction Hypertension Grandparent Acute myocardial infarction Social History Social History Social History: Surrogate decision maker: Nancy Castanon, spouse. Code status: Full code. Smoking packs per day: 1 Smoking cigarettes per day: 20.0 Years smoked: 60 Smoking pack-years: 60.00 Smoking status: Former smoker Tobacco type: cigarettes Additional smoking assessment comments: Patient smoked 1.5 packs of cigarettes per day from the age of 15 until Alcohol intake: former Drinks per week: 14 Alcohol use details: No alcohol use since 2018. Substance use: never Do You Feel Safe in your Home?: Yes Lack of Transportation: No Lack of Food: Never True Current Housing: I Have Housing Concerned About Future Housing: No Difficulty Paying Gas/Electric Bills: No Difficulty Paying for Meds: No Currently Unemployed: No Education: Bachelor's Degree Difficulty w/
--- NOTE | 2024-02-13 19:55 | ECG_ITS ---
Test Date: 2024-02-13 20:02:31 Measurements Intervals [place] Rate: 123 P: 0 [place]: 0 QRS: 132 QRSD: 151 T: -24 QT: 360 QTc: 515 Interpretive Statements ATRIAL FIBRILLATION WITH RAPID VENTRICULAR RESPONSE FREQUENT VENTRICULAR PREMATURE COMPLEXES RIGHT AXIS DEVIATION RIGHT BUNDLE BRANCH BLOCK CANNOT R/O SEPTAL INFARCT, AGE INDETERMINATE CONSIDER HIGH LATERAL INFARCT, AGE INDETERMINATE BORDERLINE ST-T WAVE ABNORMALITY- INFERIOR LEADS ABNORMAL ECG No previous ECG available for comparison Electronically Signed On 02-14-2024 06:37:19 CDT by Kiko Shore D.O.
[2024-02-13 20:22] LABS: Troponin I 0.053 ng/mL (0.000-0.034)
--- NOTE | 2024-02-13 22:14 | ADMGEN ---
This patient, Mahad Castanon, was admitted to IMU Room 206-01. Patient/family oriented to hospital policies and general routines including ID bracelet, bed and alarms, visiting hours, pain management, procedures, bathroom and other care routines, personal items, smoking policy, room service/diet, and visiting hours. Information on how to activate the Rapid Response Team has been discussed. Patient/Family are encouraged to report perceived risks to care and to ask questions if they do not understand what they are told or what they should do. Patient arrived to the IMU at 2200.
[2024-02-13] MEDS: dilTIAZem HCL 30 MG TABLET PO (22:34)
[2024-02-14] VITALS (16 sets, daily range): BP systolic 100–141; BP diastolic 52–91; PULSE 80–118; RESP 16–20; TEMP 36–36.9; O2SAT 94–98; BMI 29.9
--- NOTE | 2024-02-14 | ECHO_ITS ---
Patient Info Name: Mahad Castanon Age: 83 years : 1940 Gender: Male Ht: 70 in Wt: 199 lbs BSA: 2.13 m2 HR: 98 bpm BP: 133 / 77 mmHg Heart Rhythm: Atrial Fibrillation Technical Quality: Good Exam Date: 02/14/2024 10:24 AM Exam Location: Echo Lab Patient Status: Outpatient Admit Date: 02/13/2024 Staff Ordering Physician: Nena Sepulveda MD Paper Slitter: Mei Fields RDCS Attending Provider: Efrem Garcia MD Referring Physician: Derick MATTHEW; Exam Type: CA echo doppler color flow Study Info Indications - leg swelling Complete two-dimensional, color flow and Doppler transthoracic echocardiogram is performed. Summary 1. Complete two-dimensional, color flow and Doppler transthoracic echocardiogram is performed. 2. Mild left ventricular enlargement with mild global systolic dysfunction ejection fraction 40-45%. 3. Biatrial dilation. 4. Mild to moderate mitral regurgitation. 5. Mild aortic and tricuspid regurgitation. 6. Atrial fibrillation. Left Ventricle Left ventricular chamber dimension is mildly enlarged. Left ventricular systolic function is mildly reduced, estimated at 40-45%. The left ventricular diastolic function is indeterminate. Right Ventricle Right ventricular chamber dimension is normal. Left Atria Left atrial chamber dimension is severely enlarged. Right Atria Right atrial chamber dimension is moderately enlarged. Aortic Valve The aortic valve is trileaflet. There is mild aortic valve sclerosis. There is mild aortic valve regurgitation. Pulmonic Valve The pulmonic valve is not well visualized. Mitral Valve The mitral valve has normal leaflets. There is mild to moderate mitral valve regurgitation. The mitral valve annulus is mildly calcified. Tricuspid Valve The tricuspid valve leaflets are normal. There is mild tricuspid valve regurgitation. Pericardium/Pleural The pericardium appears normal. Aorta The aortic root size at the sinus of Valsalva is normal. Left Ventricular Outflow Tract Name Value Normal LVOT 2D LVOT Diameter 2.1 cm LVOT Doppler LVOT Peak Gradient 3 mmHg LVOT Mean Gradient 2 mmHg LVOT VTI 14 cm LVOT VTI/AV VTI Ratio 0.7 LVOT Stroke Volume 47 ml LVOT CO 5.2 l/min LVOT CI 2.4 l/min/m2 Pulmonic Valve Name Value Normal PV Doppler PV Peak Gradient 3 mmHg Mitral Valve Name Value Normal MV Doppler MV Decel Deuel 262 cm/s2 MV PHT 103 ms
[2024-02-14] MEDS: AZTREONAM 1 GM in SODIUM CHLORIDE 0.9% IV 50 ML 100 ML IVPB ×3 (05:55→21:10)
[2024-02-14] MEDS: LEVOTHYROXINE SODIUM 50 MCG TABLET PO (05:58)
[2024-02-14] MEDS: dilTIAZem HCL 30 MG TABLET PO (05:58)
[2024-02-14] MEDS: AZITHROMYCIN 500 MG/NS 250 ML 500 MG/250 ML BAG 250 MG IVPB (06:36)
--- NOTE | 2024-02-14 09:07 | PM.CNCAR ---
Assessment and Plan Assessment and plan (1) Atrial fibrillation with RVR: Code(s): I48.91 - Unspecified atrial fibrillation Status: Acute (2) CHF exacerbation: Code(s): I50.9 - Heart failure, unspecified Status: Acute Plan This is an 83-year-old man with chronic atrial fibrillation and mild systolic left ventricular dysfunction. He presents with a decompensation of heart failure and is volume overloaded with more right-sided than left-sided findings. His medical regimen consists of metoprolol for rate control and year but started as well as Xarelto for anticoagulation. I would agree with continuing his intravenous furosemide to improve his volume overload at this time. I am going to recommend and order switching him from here but started to Entresto and continuing his metoprolol. Diltiazem will be discontinued at is it is a negative inotrope. Obviously he will require some diuretic therapy at home. For the moment I will not resume his Jardiance as he has self discontinued it because of urinary incontinence although it would be helpful in managing his heart failure. Figueroa Orourke MD [facility] History of Present Illness History of Present Illness Consult date/time: 02/14/24 09:07 Reason For Visit: CHF Exacerbation,A-Fib RVR Narrative: This is an 83-year-old man I am seeing at the request of the hospitalist for assistance with the management of congestive heart failure. Patient is unknown to me prior to this consult but is followed by my partner in the office Dr. Cruz. Patient has a history of chronic atrial fibrillation and left ventricular systolic dysfunction. He says that he came to the hospital yesterday because of shortness of breath and lower extremity edema that has been gradually worsening for about 3 weeks. The symptoms have been causing him to sleep poorly at night and he came to the emergency room yesterday. Since admission he has been treated with intravenous furosemide as well as having some oral diltiazem added to his medical regimen. The patient appears to be relatively comfortable at this time in bed with the head elevated breathing room air he still has moderate lower extremity edema. His cardiac history dates back to 2017 when he was hospitalized here with shortness of breath and CHF. He was found to have left ventricular systolic dysfunction and a a atrial fibrillation. Attempts at rhythm control were carried out after anticoagulation. There was an attempt at cardioversion which lasted for about 10 days back in 2016. Because of this he was loaded as an outpatient with amiodarone and another attempted cardioversion took place in February of 2017. That also did not sustain sinus rhythm and for the 1 week follow-up visit he was back in atrial fibrillation. Amiodarone was discontinued and a rate control/anticoagulation strategy was pursued. He did see electrophysiology on 2 occasions over the years but declined an attempt at ablation of his atrial fib several years ago. He is not known to have coronary artery disease he did have a normal nuclear stress test at the time of his initial diagnosis. He last saw my partner in November of this year which time he says he was feeling well and denied any of the symptoms. His medical regimen at that time did consist of Jardiance which he said he stopped because it was causing urinary incontinence and he has not been on a diuretic. He takes metoprolol succinate 200 mg daily for rate control and systemic anticoagulation with Xarelto. His left ventricular systolic function did improve from and initially to motion more recent echoes in the last couple of years have shown ejection fraction in the range of 40-50%. Review of Systems Constitutional: Constitutional: Reports fatigue and Reports lethargy Eyes: Eyes: Reports no additional eye complaints ENT: Reports system reviewed and no additional complaints, except as documented Cardiovascular: Cardiovascular: R
[2024-02-14] MEDS: ROSUVASTATIN 10 MG TABLET PO (09:11)
[2024-02-14] MEDS: METOPROLOL SUCCINATE EXT REL 100 MG TABCR 200 MG PO (09:11)
[2024-02-14] MEDS: FUROSEMIDE INJ 40 MG/4 ML VIAL IV PUSH ×2 (09:13→21:04)
[2024-02-14] MEDS: SACUBITRIL/VALSARTAN 24-26 MG TABLET 1 TAB PO ×2 (09:18→21:05)
--- NOTE | 2024-02-14 09:46 | PM.IMPN ---
Progress Note: A&P Assessment and Plan (1) Atrial fibrillation with RVR: Code(s): I48.91 - Unspecified atrial fibrillation Status: Acute (2) CHF exacerbation: Code(s): I50.9 - Heart failure, unspecified Status: Acute (3) Lung infiltrate: Code(s): R91.8 - Other nonspecific abnormal finding of lung field Status: Acute (4) Diabetes mellitus type 2, controlled: Qualifiers: Diabetes mellitus complication status: without complication Diabetes mellitus custodial insulin use: without assistant terminal manager use Qualified Code(s): E11.9 - Type 2 diabetes mellitus without complications Code(s): E11.9 - Type 2 diabetes mellitus without complications Status: Acute (5) Essential hypertension: Code(s): I10 - Essential (primary) hypertension Status: Acute (6) Hypothyroidism: Qualifiers: Hypothyroidism type: acquired Qualified Code(s): E03.9 - Hypothyroidism, unspecified Code(s): E03.9 - Hypothyroidism, unspecified Status: Acute (7) COPD (chronic obstructive pulmonary disease): Code(s): J44.9 - Chronic obstructive pulmonary disease, unspecified Status: Acute Plan This is an 83-year-old male with past medical history significant atrial fibrillation, chronotropic pulmonary disease, cardiomyopathy, congestive heart failure, type diabetes mellitus, in gastroesophageal reflux disease, essential hypertension, hypothyroidism, dyslipidemia. Patient presents to the emergency room due to shortness of breath with minimal exertion, worsening bilateral lower extremity swelling. in emergency room patient was found to have accelerated heart rate found to be in AFib with rapid ventricular response. Preliminary workup was significant for breaking natriuretic peptide 13,000, chest x-ray with was significant for infiltrate. Patient has been admitted for further evaluation management and treatment. CHF exacerbation history of systolic heart failure EF 40-50%, possibly due to ischemic cardiomyopathy, patient has history of CAD appreciate cardiology consultation, continue IV Lasix start Entresto 24-26 mg daily p.o. b.i.d. continue metoprolol p.o. Repeat echocardiogram History of CAD Patient denies chest pain Received aspirin 325 mg, chronic patient is on blood thinner Xarelto 20 mg daily, continue Crestor 10 mg daily p.o. chronic AFib RVR Rate is controlled Discontinue Cardizem due to negative inotrope continue metoprolol p.o. and metoprolol p.o. Reduce better control management per stock handler acquired hypothyroidism Continue Synthroid 50 mg daily p.o. COPD, suspecting pneumonia and start azithromycin IV for case advocate evaluation patient has a cough x-ray showed airspace opacity at the lung base c/w azithromycin Subjective Date/time seen: 02/14/24 09:46 Interval history: I saw and examined patient today. Patient is feeling better, shortness breast is improving, denies palpitation, chest pain, abdomen pain, nausea vomiting diarrhea. Patient is afebrile, blood pressure stable, Objective Data Vital Signs Vital Signs: Vital Signs - 24 hr 02/13/24 13:43 02/13/24 15:43 02/13/24 15:43 Temperature 97.0 F L Pulse Rate 126 H 81 Respiratory Rate 18 18 Blood Pressure 141/108 H 131/81 Pulse Oximetry 100 97 Oxygen Delivery Room Air Room Air 02/13/24 15:46 02/13/24 16:09 02/13/24 16:32 Temperature Pulse Rate 87 82 97 Respiratory Rate 20 15 18 Blood Pressure 131/88 136/81 136/81 Pulse Oximetry 96 96 98 Oxygen Delivery 02/13/24 17:01 02/13/24 17:35 02/13/24 21:10 Temperature 97.4 F L Pulse Rate 103 H 112 H 107 H Respiratory Rate 19 20 19 Blood Pressure 146/96 H 143/120 H 146/91 H Pulse Oximetry 96 99 96 Oxygen Delivery 02/13/24 21:50 02/13/24 22:28 02/13/24 22:00 Temperature 97.4 F L Pulse Rate 120 H 130 H Respiratory Rate 20 Blood Pressure 142/93 H Pulse Oximetry 94 Oxygen
[2024-02-14] MEDS: RIVAROXABAN 20 MG TABLET PO (21:05)
[2024-02-15] VITALS (16 sets, daily range): BP systolic 90–133; BP diastolic 58–72; PULSE 59–116; RESP 16–20; TEMP 36.1–37.2; O2SAT 92–97
[2024-02-15] MEDS: HYDROcodone/acetaminophen (*CRX) 5-325 MG TABLET 1 TAB PO ×2 (05:23→11:40)
[2024-02-15] MEDS: LEVOTHYROXINE SODIUM 50 MCG TABLET PO (05:23)
[2024-02-15] MEDS: AZTREONAM 1 GM in SODIUM CHLORIDE 0.9% IV 50 ML 100 ML IVPB ×3 (05:24→22:02)
[2024-02-15] MEDS: AZITHROMYCIN 500 MG/NS 250 ML 500 MG/250 ML BAG 250 MG IVPB (05:59)
[2024-02-15] MEDS: METOPROLOL SUCCINATE EXT REL 100 MG TABCR 200 MG PO (08:12)
[2024-02-15] MEDS: FUROSEMIDE INJ 40 MG/4 ML VIAL IV PUSH ×2 (08:12→22:01)
[2024-02-15] MEDS: SACUBITRIL/VALSARTAN 24-26 MG TABLET 1 TAB PO ×2 (08:12→22:02)
[2024-02-15] MEDS: ROSUVASTATIN 10 MG TABLET PO (08:12)
[2024-02-15] MEDS: ACETAMINOPHEN 325 MG TABLET 650 MG PO (08:17)
--- NOTE | 2024-02-15 08:59 | PM.IMPN ---
Progress Note: A&P Assessment and Plan (1) Atrial fibrillation with RVR: Code(s): I48.91 - Unspecified atrial fibrillation Status: Acute (2) CHF exacerbation: Code(s): I50.9 - Heart failure, unspecified Status: Acute (3) Lung infiltrate: Code(s): R91.8 - Other nonspecific abnormal finding of lung field Status: Acute (4) Diabetes mellitus type 2, controlled: Qualifiers: Diabetes mellitus complication status: without complication Diabetes mellitus usp insulin use: without roasterman use Qualified Code(s): E11.9 - Type 2 diabetes mellitus without complications Code(s): E11.9 - Type 2 diabetes mellitus without complications Status: Acute (5) Essential hypertension: Code(s): I10 - Essential (primary) hypertension Status: Acute (6) Hypothyroidism: Qualifiers: Hypothyroidism type: acquired Qualified Code(s): E03.9 - Hypothyroidism, unspecified Code(s): E03.9 - Hypothyroidism, unspecified Status: Acute (7) COPD (chronic obstructive pulmonary disease): Code(s): J44.9 - Chronic obstructive pulmonary disease, unspecified Status: Acute Plan This is an 83-year-old male with past medical history significant atrial fibrillation, chronotropic pulmonary disease, cardiomyopathy, congestive heart failure, type diabetes mellitus, in gastroesophageal reflux disease, essential hypertension, hypothyroidism, dyslipidemia. Patient presents to the emergency room due to shortness of breath with minimal exertion, worsening bilateral lower extremity swelling. in emergency room patient was found to have accelerated heart rate found to be in AFib with rapid ventricular response. Preliminary workup was significant for breaking natriuretic peptide 13,000, chest x-ray with was significant for infiltrate. Patient has been admitted for further evaluation management and treatment. CHF exacerbation history of systolic heart failure EF 40-50%, possibly due to ischemic cardiomyopathy, patient has history of CAD appreciate cardiology consultation, patient is on IV Lasix, t Entresto 24-26 mg daily p.o. b.i.d. and metoprolol p.o. Repeat echocardiogram 1. Complete two-dimensional, color flow and Doppler transthoracic echocardiogram is performed. 2. Mild left ventricular enlargement with mild global systolic dysfunction ejection fraction 40-45%. 3. Biatrial dilation. 4. Mild to moderate mitral regurgitation. 5. Mild aortic and tricuspid regurgitation. 6. Atrial fibrillation. fluid overload is improving, still has some arouse in left lower base. continue current management History of CAD Patient denies chest pain Received aspirin 325 mg, chronic patient is on blood thinner Xarelto 20 mg daily, continue Crestor 10 mg daily p.o. chronic AFib RVR Rate is controlled Discontinue Cardizem due to negative inotrope continue metoprolol p.o. and metoprolol p.o. Reduce better control management per director of accounts payable acquired hypothyroidism Continue Synthroid 50 mg daily p.o. COPD, suspecting pneumonia and start azithromycin IV for curator natural history museum evaluation patient has a cough x-ray showed airspace opacity at the lung base c/w azithromycin Subjective Date/time seen: 02/15/24 08:59 Interval history: I saw and examined patient today. patient has a negative input output balance, -1.8 L. shortness of breath continues to improve, denies palpitation, chest pain, abdomen pain, nausea vomiting diarrhea. Patient is afebrile, blood pressure stable, Exam Narrative: GENERAL: Pleasant, in no acute distress. Well-nourished. - EYES: EOMI. Anicteric. - HENT: Moist mucous membranes. - LUNGS: Clear to auscultation bilaterally, left lower base rales. - CARDIOVASCULAR: irregular rhythm. No murmur. No JVD. - ABDOMEN: Soft, non-tender and non-distended. No palpable masses. - EXTREMITIES: No edema. Peripheral pulses 2+. Non-tender.
[2024-02-15 10:47] LABS: Basophils Percent Auto 0.4 % (0.2-1.2); Eosinophils Absolute Auto 0.1 K/mm3 (0-0.3); Eosinophils Percent Auto 0.8 % (0-4.4); Hematocrit 46.6 % (42.0-52.0); Hemoglobin 15.3 g/dL (14.0-18.0); Immature Granulocyte Absolute 0.03 K/mm3 (0.00-0.031); Immature Granulocyte Percent A 0.3 % (0-0.5); Lymphocytes Absolute Auto 0.93 K/mm3 (0.9-3.2); Lymphocytes Percent Auto 10.3 % (18.3-44.2); Mean Corpuscular HGB Conc 32.8 g/dl (32-36); Mean Corpuscular Hemoglobin 31.9 pg (26-34); Mean Corpuscular Volume 97.1 fl (80-100); Mean Platelet Volume 9.6 fl (7.4-10.4); Monocytes Percent Auto 10.9 % (2.6-8.5); Neutrophils Absolute Auto 6.9 K/mm3 (1.3-6.7); Neutrophils Percent Auto 77.3 % (45.5-73.1); Platelet Count Result 230 k/mm3 (150-375); Red Cell Distribution Width 15.8 % (11.5-14.5)
[2024-02-15 10:58] LABS: Anion Gap 10 mmol/L (4-12); Blood Urea Nitrogen 16 mg/dL (9-20); Calcium 8.3 mg/dL (8.4-10.2); Carbon Dioxide 37 mmol/L (22-30); Chloride 87 mmol/L (98-107); Estimated CRCL calculation 52 ml/min; Estimated Glomerular Filt Rate > 60; Glucose 247 mg/dL (65-110); Potassium 2.7 mmol/L (3.4-5.0); Sodium 134 mmol/L (137-145)
[2024-02-15] MEDS: KCL 20 MEQ/SW 100 ML 100 ML 50 MEQ IVPB (11:33)
[2024-02-15] MEDS: POTASSIUM CHLORIDE 20 MEQ ER TABLET 40 MEQ PO (11:35)
--- NOTE | 2024-02-15 11:58 | PM.PNCARD ---
Progress Note: A&P Assessment and Plan (1) Acute on chronic heart failure with mildly reduced ejection fraction (HFmrEF, 41-49%): Code(s): I50.23 - Acute on chronic systolic (congestive) heart failure Status: Acute Assessment and Plan: Diuresing well, continue IV Lasix BID. Continue Entresto. Continue Toprol. Will start Spironolactone. For the moment I will not resume his Jardiance as he has self discontinued it because of urinary incontinence although it would be helpful in managing his heart failure. (2) Atrial fibrillation with RVR: Code(s): I48.91 - Unspecified atrial fibrillation Status: Acute Assessment and Plan: Rate controlled now. Continue Toprol and Xarelto. (3) Hyperlipidemia: Code(s): E78.5 - Hyperlipidemia, unspecified Status: Acute Assessment and Plan: Continue Rosuvastatin. (4) Diabetes mellitus type 2, controlled: Qualifiers: Diabetes mellitus usp insulin use: without usp use Diabetes mellitus complication status: without complication Qualified Code(s): E11.9 - Type 2 diabetes mellitus without complications Code(s): E11.9 - Type 2 diabetes mellitus without complications Status: Acute Assessment and Plan: Management as per primary team. (5) Essential hypertension: Code(s): I10 - Essential (primary) hypertension Status: Acute Assessment and Plan: Stable. Continue Lasix, Entresto, Toprol. Adding Spironolactone for HFmrEF. Plan Recommendations and plan discussed with Hospitalist. Subjective Date/time seen: 02/15/24 11:58 Interval history: Reason for visit: Acute on chronic HFmrEF HPI: This is an 83-year-old man I am seeing at the request of the hospitalist for assistance with the management of congestive heart failure. Patient is unknown to me prior to this consult but is followed by my partner in the office Dr. Cruz. Patient has a history of chronic atrial fibrillation and left ventricular systolic dysfunction. He says that he came to the hospital yesterday because of shortness of breath and lower extremity edema that has been gradually worsening for about 3 weeks. The symptoms have been causing him to sleep poorly at night and he came to the emergency room yesterday. Since admission he has been treated with intravenous furosemide as well as having some oral diltiazem added to his medical regimen. The patient appears to be relatively comfortable at this time in bed with the head elevated breathing room air he still has moderate lower extremity edema. His cardiac history dates back to 2016 when he was hospitalized here with shortness of breath and CHF. He was found to have left ventricular systolic dysfunction and a a atrial fibrillation. Attempts at rhythm control were carried out after anticoagulation. There was an attempt at cardioversion which lasted for about 10 days back in 2016. Because of this he was loaded as an outpatient with amiodarone and another attempted cardioversion took place in February of 2017. That also did not sustain sinus rhythm and for the 1 week follow-up visit he was back in atrial fibrillation. Amiodarone was discontinued and a rate control/anticoagulation strategy was pursued. He did see electrophysiology on 2 occasions over the years but declined an attempt at ablation of his atrial fib several years ago. He is not known to have coronary artery disease he did have a normal nuclear stress test at the time of his initial diagnosis. He last saw my partner in November of this year which time he says he was feeling well and denied any of the symptoms. His medical regimen at that time did consist of Jardiance which he said he stopped because it was causing urinary incontinence and he has not been on a diuretic. He takes metoprolol succinate 200 mg daily for rate control and systemic anticoagulation with Xarelto. His left ventricular systolic function did improve from and
[2024-02-15] MEDS: SPIRONOLACTONE 25 MG TABLET PO (13:52)
[2024-02-15] MEDS: RIVAROXABAN 20 MG TABLET PO (22:02)
[2024-02-16] VITALS (15 sets, daily range): BP systolic 103–144; BP diastolic 58–83; PULSE 83–131; RESP 18; TEMP 36.6–36.8; O2SAT 94–98
[2024-02-16 04:49] LABS: Basophils Absolute Auto 0.1 K/mm3 (0.0-0.1); Basophils Percent Auto 0.7 % (0.2-1.2); Eosinophils Absolute Auto 0.1 K/mm3 (0-0.3); Eosinophils Percent Auto 1.5 % (0-4.4); Hematocrit 47.5 % (42.0-52.0); Immature Granulocyte Absolute 0.05 K/mm3 (0.00-0.031); Immature Granulocyte Percent A 0.6 % (0-0.5); Lymphocytes Absolute Auto 1.55 K/mm3 (0.9-3.2); Lymphocytes Percent Auto 18.4 % (18.3-44.2); Mean Corpuscular HGB Conc 31.6 g/dl (32-36); Mean Corpuscular Hemoglobin 30.9 pg (26-34); Mean Corpuscular Volume 97.9 fl (80-100); Mean Platelet Volume 9.8 fl (7.4-10.4); Monocytes Absolute Auto 1.1 K/mm3 (0.1-0.6); Monocytes Percent Auto 12.8 % (2.6-8.5); Neutrophils Absolute Auto 5.6 K/mm3 (1.3-6.7); Platelet Count Result 223 k/mm3 (150-375); Red Blood Count 4.85 M/mm3 (4.6-6.20); Red Cell Distribution Width 15.4 % (11.5-14.5); White Blood Count 8.4 K/mm3 (4.5-10.0)
[2024-02-16 04:59] LABS: Anion Gap 8 mmol/L (4-12); Blood Urea Nitrogen 18 mg/dL (9-20); Calcium 8.3 mg/dL (8.4-10.2); Carbon Dioxide 39 mmol/L (22-30); Chloride 88 mmol/L (98-107); Estimated CRCL calculation 59 ml/min; Estimated Glomerular Filt Rate > 60; Glucose 150 mg/dL (65-110); Potassium 2.9 mmol/L (3.4-5.0); Sodium 135 mmol/L (137-145)
[2024-02-16] MEDS: AZTREONAM 1 GM in SODIUM CHLORIDE 0.9% IV 50 ML 100 ML IVPB ×3 (06:14→21:25)
[2024-02-16] MEDS: LEVOTHYROXINE SODIUM 50 MCG TABLET PO (06:15)
[2024-02-16] MEDS: AZITHROMYCIN 500 MG/NS 250 ML 500 MG/250 ML BAG 250 MG IVPB (06:49)
[2024-02-16] MEDS: ROSUVASTATIN 10 MG TABLET PO (07:54)
[2024-02-16] MEDS: SPIRONOLACTONE 25 MG TABLET PO (07:54)
[2024-02-16] MEDS: METOPROLOL SUCCINATE EXT REL 100 MG TABCR 200 MG PO (07:54)
[2024-02-16] MEDS: SACUBITRIL/VALSARTAN 24-26 MG TABLET 1 TAB PO ×2 (07:54→20:18)
[2024-02-16] MEDS: ACETAMINOPHEN 325 MG TABLET 650 MG PO ×2 (07:54→12:11)
[2024-02-16] MEDS: FUROSEMIDE INJ 40 MG/4 ML VIAL IV PUSH ×2 (07:55→20:17)
--- NOTE | 2024-02-16 09:43 | PM.IMPN ---
Progress Note: A&P Assessment and Plan (1) Atrial fibrillation with RVR: Code(s): I48.91 - Unspecified atrial fibrillation Status: Acute (2) CHF exacerbation: Code(s): I50.9 - Heart failure, unspecified Status: Deleted Assessment and Plan: Carpenter Rough consult appreciate recommendation and plan -continue Entresto Continue metoprolol per Cardiology continue hold Jardiance due to urinary incontinence Repeat echocardiogram 1. Complete two-dimensional, color flow and Doppler transthoracic echocardiogram is performed. 2. Mild left ventricular enlargement with mild global systolic dysfunction ejection fraction 40-45%. 3. Biatrial dilation. 4. Mild to moderate mitral regurgitation. 5. Mild aortic and tricuspid regurgitation. 6. Atrial fibrillation. fluid overload is improving, still has some arouse in left lower base. (3) Lung infiltrate: Code(s): R91.8 - Other nonspecific abnormal finding of lung field Status: Acute (4) Diabetes mellitus type 2, controlled: Qualifiers: Diabetes mellitus complication status: without complication Diabetes mellitus watcher automat long goods insulin use: without mcc use Qualified Code(s): E11.9 - Type 2 diabetes mellitus without complications Code(s): E11.9 - Type 2 diabetes mellitus without complications Status: Acute Assessment and Plan: -bedside glucose management -initiate hypoglycemic protocol (5) Essential hypertension: Code(s): I10 - Essential (primary) hypertension Status: Acute Assessment and Plan: -stable continue Lasix, Entresto, metoprolol -continue spironolactone (6) Hypothyroidism: Qualifiers: Hypothyroidism type: acquired Qualified Code(s): E03.9 - Hypothyroidism, unspecified Code(s): E03.9 - Hypothyroidism, unspecified Status: Acute Assessment and Plan: -continue Synthroid 50 mg daily p.o. (7) COPD (chronic obstructive pulmonary disease): Code(s): J44.9 - Chronic obstructive pulmonary disease, unspecified Status: Acute Assessment and Plan: X-ray revealed airspace opacity at lung base -continue azithromycin IV Q 24 (8) Constipation: Code(s): K59.00 - Constipation, unspecified Status: Inactive Assessment and Plan: -add stool softener *add Miralax *monitor for bowel movement Plan Continue home medications: VTE Prophylaxis: Xarelto p.o. 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 Patient presents to the emergency room due to shortness of breath with minimal exertion. -patient seen this morning he is resting in bed in no acute distress, denies any overnight events. He complains of ongoing constipation citing isn't had a bowel movement in the last 5 days requests stool softeners. Review of Systems Review of Systems: sob, fatigue, decreased stamina Exam Narrative: GENERAL: Pleasant, in no acute distress. Well-nourished. - EYES: EOMI. Anicteric. - HENT: Moist mucous membranes. - LUNGS: Clear to auscultation bilaterally, left lower base rales. - CARDIOVASCULAR: irregular rhythm. No murmur. No JVD. - ABDOMEN: Soft, non-tender and non-distended. No palpable masses. - EXTREMITIES: No edema. Peripheral pulses 2+. Non-tender. - NEUROLOGIC: No focal neurological deficits. CN II-XII grossly intact. general weakness - PSYCHIATRIC: Awake, Alert and oriented x 3. Appropriate mood and affect. - SKIN: No rashes or lesions. Warm. - LYMPH: No cervical lymphadenopathy. Objective
[2024-02-16] MEDS: KCL 20 MEQ/SW 100 ML 100 ML 50 MEQ IVPB (10:43)
[2024-02-16] MEDS: DOCUSATE SODIUM 100 MG CAPSULE PO ×2 (10:45→20:18)
--- NOTE | 2024-02-16 10:57 | PM.PNCARD ---
Progress Note: A&P Assessment and Plan (1) Acute on chronic heart failure with mildly reduced ejection fraction (HFmrEF, 41-49%): Code(s): I50.23 - Acute on chronic systolic (congestive) heart failure Status: Acute Assessment and Plan: Diuresing well, continue IV Lasix BID. Continue Entresto. Continue Toprol. Started Spironolactone. For the moment I will not resume his Jardiance as he has self discontinued it because of urinary incontinence although it would be helpful in managing his heart failure. (2) Atrial fibrillation with RVR: Code(s): I48.91 - Unspecified atrial fibrillation Status: Acute Assessment and Plan: Rate controlled for the most part. Continue Toprol and Xarelto. (3) Hyperlipidemia: Code(s): E78.5 - Hyperlipidemia, unspecified Status: Acute Assessment and Plan: Continue Rosuvastatin. (4) Diabetes mellitus type 2, controlled: Qualifiers: Diabetes mellitus remote computer terminal operator insulin use: without remote computer terminal operator use Diabetes mellitus complication status: without complication Qualified Code(s): E11.9 - Type 2 diabetes mellitus without complications Code(s): E11.9 - Type 2 diabetes mellitus without complications Status: Acute Assessment and Plan: Management as per primary team. (5) Essential hypertension: Code(s): I10 - Essential (primary) hypertension Status: Acute Assessment and Plan: Stable. Continue Lasix, Entresto, Toprol. Added Spironolactone for HFmrEF. Plan Recommendations and plan discussed with Hospitalist. Subjective Date/time seen: 02/16/24 10:57 Interval history: Reason for visit: Acute on chronic HFmrEF HPI: This is an 83-year-old man I am seeing at the request of the hospitalist for assistance with the management of congestive heart failure. Patient is unknown to me prior to this consult but is followed by my partner in the office Dr. Cruz. Patient has a history of chronic atrial fibrillation and left ventricular systolic dysfunction. He says that he came to the hospital yesterday because of shortness of breath and lower extremity edema that has been gradually worsening for about 3 weeks. The symptoms have been causing him to sleep poorly at night and he came to the emergency room yesterday. Since admission he has been treated with intravenous furosemide as well as having some oral diltiazem added to his medical regimen. The patient appears to be relatively comfortable at this time in bed with the head elevated breathing room air he still has moderate lower extremity edema. His cardiac history dates back to 2016 when he was hospitalized here with shortness of breath and CHF. He was found to have left ventricular systolic dysfunction and a a atrial fibrillation. Attempts at rhythm control were carried out after anticoagulation. There was an attempt at cardioversion which lasted for about 10 days back in 2016. Because of this he was loaded as an outpatient with amiodarone and another attempted cardioversion took place in February of 2017. That also did not sustain sinus rhythm and for the 1 week follow-up visit he was back in atrial fibrillation. Amiodarone was discontinued and a rate control/anticoagulation strategy was pursued. He did see electrophysiology on 2 occasions over the years but declined an attempt at ablation of his atrial fib several years ago. He is not known to have coronary artery disease he did have a normal nuclear stress test at the time of his initial diagnosis. He last saw my partner in November of this year which time he says he was feeling well and denied any of the symptoms. His medical regimen at that time did consist of Jardiance which he said he stopped because it was causing urinary incontinence and he has not been on a diuretic. He takes metoprolol succinate 200 mg daily for rate control and systemic anticoagulation with Xarelto. His left ventricular systolic function did improv
[2024-02-16 18:21] LABS: Glucose Point of Care 220 mg/dl (65-105)
[2024-02-16] MEDS: RIVAROXABAN 20 MG TABLET PO (20:18)
[2024-02-16 20:39] LABS: Glucose Point of Care 221 mg/dl (65-105)
[2024-02-17] VITALS (13 sets, daily range): BP systolic 109–140; BP diastolic 62–87; PULSE 86–119; RESP 18; TEMP 36.4–36.7; O2SAT 92–100
[2024-02-17 00:32] LABS: Glucose Point of Care 273 mg/dl (65-105)
[2024-02-17] MEDS: AZTREONAM 1 GM in SODIUM CHLORIDE 0.9% IV 50 ML 100 ML IVPB (05:20)
[2024-02-17] MEDS: AZITHROMYCIN 500 MG/NS 250 ML 500 MG/250 ML BAG 250 MG IVPB (06:01)
[2024-02-17] MEDS: LEVOTHYROXINE SODIUM 50 MCG TABLET PO (06:04)
[2024-02-17 07:32] LABS: Glucose Point of Care 175 mg/dl (65-105)
[2024-02-17 08:05] LABS: Basophils Absolute Auto 0.1 K/mm3 (0.0-0.1); Basophils Percent Auto 0.6 % (0.2-1.2); Eosinophils Absolute Auto 0.2 K/mm3 (0-0.3); Eosinophils Percent Auto 1.6 % (0-4.4); Hemoglobin 15.5 g/dL (14.0-18.0); Immature Granulocyte Absolute 0.05 K/mm3 (0.00-0.031); Immature Granulocyte Percent A 0.5 % (0-0.5); Lymphocytes Absolute Auto 1.35 K/mm3 (0.9-3.2); Mean Corpuscular Hemoglobin 30.8 pg (26-34); Mean Corpuscular Volume 99.4 fl (80-100); Mean Platelet Volume 9.5 fl (7.4-10.4); Monocytes Absolute Auto 0.9 K/mm3 (0.1-0.6); Monocytes Percent Auto 9.1 % (2.6-8.5); Neutrophils Absolute Auto 7.1 K/mm3 (1.3-6.7); Neutrophils Percent Auto 74.2 % (45.5-73.1); Platelet Count Result 251 k/mm3 (150-375); Red Blood Count 5.03 M/mm3 (4.6-6.20); Red Cell Distribution Width 15.7 % (11.5-14.5); White Blood Count 9.6 K/mm3 (4.5-10.0)
[2024-02-17] MEDS: ROSUVASTATIN 10 MG TABLET PO (08:17)
[2024-02-17] MEDS: METOPROLOL SUCCINATE EXT REL 100 MG TABCR 200 MG PO (08:17)
[2024-02-17] MEDS: polyethylene glycoL 3350 17 GM POWD.PACK PO (08:17)
[2024-02-17] MEDS: SPIRONOLACTONE 25 MG TABLET PO (08:17)
[2024-02-17] MEDS: SACUBITRIL/VALSARTAN 24-26 MG TABLET 1 TAB PO ×2 (08:17→20:31)
[2024-02-17 08:18] LABS: Alanine Aminotransferase 21 U/L (6-50); Albumin Level 3.8 g/dL (3.5-5.1); Alkaline Phosphatase 105 U/L (38-126); Aspartate Amino Transferase 28 U/L (17-59); Bilirubin,Total 1.6 mg/dL (0.2-1.3); Blood Urea Nitrogen 20 mg/dL (9-20); Calcium 8.5 mg/dL (8.4-10.2); Carbon Dioxide > 40 mmol/L (22-30); Chloride 89 mmol/L (98-107); Estimated CRCL calculation 57 ml/min; Estimated Glomerular Filt Rate > 60; Glucose 172 mg/dL (65-110); Potassium 3.8 mmol/L (3.4-5.0); Sodium 138 mmol/L (137-145)
[2024-02-17] MEDS: FUROSEMIDE INJ 40 MG/4 ML VIAL IV PUSH ×2 (08:19→20:31)
[2024-02-17] MEDS: DOCUSATE SODIUM 100 MG CAPSULE PO ×2 (08:22→20:31)
--- NOTE | 2024-02-17 08:30 | PM.PNCARD ---
Progress Note: A&P Assessment and Plan (1) Acute on chronic heart failure with mildly reduced ejection fraction (HFmrEF, 41-49%): Code(s): I50.23 - Acute on chronic systolic (congestive) heart failure Status: Acute Assessment and Plan: Will shift him to p.o. furosemide today Continue Entresto. Continue Toprol. Started Spironolactone. Choosing not to add SGLT2i as he has self discontinued this in the past because of urinary incontinence. (2) Atrial fibrillation with RVR: Code(s): I48.91 - Unspecified atrial fibrillation Status: Acute Assessment and Plan: Rate controlled for the most part. Continue Toprol and Xarelto. (3) Hyperlipidemia: Code(s): E78.5 - Hyperlipidemia, unspecified Status: Acute Assessment and Plan: Continue Rosuvastatin. 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 (5) Essential hypertension: Code(s): I10 - Essential (primary) hypertension Status: Acute Assessment and Plan: Stable. Continue Lasix, Entresto, Toprol. Added Spironolactone for HFmrEF. Subjective Date/time seen: 02/17/24 08:30 Interval history: Reason for visit: Acute on chronic HFmrEF HPI: This is an 83-year-old man I am seeing at the request of the hospitalist for assistance with the management of congestive heart failure. Patient is unknown to me prior to this consult but is followed by my partner in the office Dr. Cruz. Patient has a history of chronic atrial fibrillation and left ventricular systolic dysfunction. He says that he came to the hospital yesterday because of shortness of breath and lower extremity edema that has been gradually worsening for about 3 weeks. The symptoms have been causing him to sleep poorly at night and he came to the emergency room yesterday. Since admission he has been treated with intravenous furosemide as well as having some oral diltiazem added to his medical regimen. The patient appears to be relatively comfortable at this time in bed with the head elevated breathing room air he still has moderate lower extremity edema. His cardiac history dates back to 2016 when he was hospitalized here with shortness of breath and CHF. He was found to have left ventricular systolic dysfunction and a a atrial fibrillation. Attempts at rhythm control were carried out after anticoagulation. There was an attempt at cardioversion which lasted for about 10 days back in 2016. Because of this he was loaded as an outpatient with amiodarone and another attempted cardioversion took place in February of 2017. That also did not sustain sinus rhythm and for the 1 week follow-up visit he was back in atrial fibrillation. Amiodarone was discontinued and a rate control/anticoagulation strategy was pursued. He did see electrophysiology on 2 occasions over the years but declined an attempt at ablation of his atrial fib several years ago. He is not known to have coronary artery disease he did have a normal nuclear stress test at the time of his initial diagnosis. He last saw my partner in November of this year which time he says he was feeling well and denied any of the symptoms. His medical regimen at that time did consist of Jardiance which he said he stopped because it was causing urinary incontinence and he has not been on a diuretic. He takes metoprolol succinate 200 mg daily for rate control and systemic anticoagulation with Xarelto. His left ventricular systolic function did improve from and initially to motion more recent echoes in the last couple of years have shown ejection fraction in the range of 40-5
[2024-02-17 11:19] LABS: Glucose Point of Care 275 mg/dl (65-105)
--- NOTE | 2024-02-17 11:39 | P.PNIM_ITS ---
Progress Note: A&P Assessment and Plan (1) Atrial fibrillation with RVR: Code(s): I48.91 - Unspecified atrial fibrillation Status: Acute Assessment and Plan: 02/17/24: * Initially presenting with AFib RVR. He is currently rate controlled. * Continue current medications. * Cardiology following. * Continue telemetry but may step-down from IMU. * Continue Xarelto. (2) CHF exacerbation: Code(s): I50.9 - Heart failure, unspecified Status: Deleted Assessment and Plan: Fire Support Man consult appreciate recommendation and plan -continue Entresto Continue metoprolol per Cardiology continue hold Jardiance due to urinary incontinence Repeat echocardiogram 1. Complete two-dimensional, color flow and Doppler transthoracic echocardiogram is performed. 2. Mild left ventricular enlargement with mild global systolic dysfunction ejection fraction 40-45%. 3. Biatrial dilation. 4. Mild to moderate mitral regurgitation. 5. Mild aortic and tricuspid regurgitation. 6. Atrial fibrillation. fluid overload is improving, still has some arouse in left lower base. (3) Lung infiltrate: Code(s): R91.8 - Other nonspecific abnormal finding of lung field Status: Acute Assessment and Plan: 02/17/24: * Continue antibiotics of aztreonam and azithromycin. * Respiratory function is stable. * Patient on room air. * Plan on transitioning to oral antibiotics tomorrow. (4) Diabetes mellitus type 2, controlled: Qualifiers: Diabetes mellitus buttermaker helper insulin use: without buttermaker helper use Diabetes mellitus complication status: without complication Qualified Code(s): E11.9 - Type 2 diabetes mellitus without complications Code(s): E11.9 - Type 2 diabetes mellitus without complications Status: Acute Assessment and Plan: -bedside glucose management -initiate hypoglycemic protocol 02/17/24: * Continue hypoglycemic protocol. * Glucose checks a.c. and HS as well as as needed * sliding scale insulin * diabetic diet * check A1c in a.m.. (5) Essential hypertension: Code(s): I10 - Essential (primary) hypertension Status: Acute Assessment and Plan: -stable continue Lasix, Entresto, metoprolol -continue spironolactone 02/17/24: * Continue current medications. * Continue to monitor blood pressure (6) Hypothyroidism: Qualifiers: Hypothyroidism type: acquired Qualified Code(s): E03.9 - Hypothyroidism, unspecified Code(s): E03.9 - Hypothyroidism, unspecified Status: Chronic Assessment and Plan: -continue Synthroid 50 mg daily p.o. 02/17/24: * continue Synthroid. (7) COPD (chronic obstructive pulmonary disease): Code(s): J44.9 - Chronic obstructive pulmonary disease, unspecified Status: Acute Assessment and Plan: X-ray revealed airspace opacity at lung base -continue azithromycin IV Q 24 02/17/24: * Continue aztreonam and azithromycin. * Preliminary blood cultures are negative. * Continue to monitor respiratory status. * Supplemental oxygen as needed. * transition to oral antibiotics tomorrow. (8) Constipation: Code(s): K59.00 - Constipation, unspecified Status: Inactive Assessment and Plan: -add stool softener *add Miralax *monitor for bowel movement Plan Continue home medications: VTE Prophylaxis: Xarelto p.o. DIET: Heart healthy Anticipated hospital stay: > 2 days Code Status: Full
--- NOTE | 2024-02-17 11:39 | PM.IMPN ---
Progress Note: A&P Assessment and Plan (1) Atrial fibrillation with RVR: Code(s): I48.91 - Unspecified atrial fibrillation Status: Acute Assessment and Plan: 02/17/24: Initially presenting with AFib RVR. He is currently rate controlled. Continue current medications. Cardiology following. Continue telemetry but may step-down from IMU. Continue Xarelto. (2) CHF exacerbation: Code(s): I50.9 - Heart failure, unspecified Status: Deleted Assessment and Plan: Geotechnician consult appreciate recommendation and plan -continue Entresto Continue metoprolol per Cardiology continue hold Jardiance due to urinary incontinence Repeat echocardiogram 1. Complete two-dimensional, color flow and Doppler transthoracic echocardiogram is performed. 2. Mild left ventricular enlargement with mild global systolic dysfunction ejection fraction 40-45%. 3. Biatrial dilation. 4. Mild to moderate mitral regurgitation. 5. Mild aortic and tricuspid regurgitation. 6. Atrial fibrillation. fluid overload is improving, still has some arouse in left lower base. (3) Lung infiltrate: Code(s): R91.8 - Other nonspecific abnormal finding of lung field Status: Acute Assessment and Plan: 02/17/24: Continue antibiotics of aztreonam and azithromycin. Respiratory function is stable. Patient on room air. Plan on transitioning to oral antibiotics tomorrow. (4) Diabetes mellitus type 2, controlled: Qualifiers: Diabetes mellitus extermination supervisor insulin use: without extermination supervisor use Diabetes mellitus complication status: without complication Qualified Code(s): E11.9 - Type 2 diabetes mellitus without complications Code(s): E11.9 - Type 2 diabetes mellitus without complications Status: Acute Assessment and Plan: -bedside glucose management -initiate hypoglycemic protocol 02/17/24: Continue hypoglycemic protocol. Glucose checks a.c. and HS as well as as needed sliding scale insulin diabetic diet check A1c in a.m.. (5) Essential hypertension: Code(s): I10 - Essential (primary) hypertension Status: Acute Assessment and Plan: -stable continue Lasix, Entresto, metoprolol -continue spironolactone 02/17/24: Continue current medications. Continue to monitor blood pressure (6) Hypothyroidism: Qualifiers: Hypothyroidism type: acquired Qualified Code(s): E03.9 - Hypothyroidism, unspecified Code(s): E03.9 - Hypothyroidism, unspecified Status: Chronic Assessment and Plan: -continue Synthroid 50 mg daily p.o. 02/17/24: continue Synthroid. (7) COPD (chronic obstructive pulmonary disease): Code(s): J44.9 - Chronic obstructive pulmonary disease, unspecified Status: Acute Assessment and Plan: X-ray revealed airspace opacity at lung base -continue azithromycin IV Q 24 02/17/24: Continue aztreonam and azithromycin. Preliminary blood cultures are negative. Continue to monitor respiratory status. Supplemental oxygen as needed. transition to oral antibiotics tomorrow. (8) Constipation: Code(s): K59.00 - Constipation, unspecified Status: Inactive Assessment and Plan: -add stool softener *add Miralax *monitor for bowel movement Plan Continue home medications: VTE Prophylaxis: Xarelto p.o. DIET: Heart healthy Anticipated hospital stay: > 2 days Code Status: Flue Lining Dipper Spent With Patient Time with patient: 25 - 35 minutes Subjective Date/time seen: 02/17/24 1055 Interval history: C2 patient was examined today assessment. Reports that he has been better. Overall there has been good diuresis and Cardiology switched and oral [address] He denies any chest pain or remaining dyspnea. Remains on room air. He does continue to have AFib with a controlled rate. Stay number for of aztreonam and a azithromycin. He re
[2024-02-17] MEDS: INSULIN ASPART (*BKC) 100 UNITS/ML SUB-Q ×2 (11:50→21:41)
[2024-02-17] MEDS: CEFDINIR 300 MG CAPSULE PO ×2 (13:26→20:31)
[2024-02-17 16:19] LABS: Glucose Point of Care 118 mg/dl (65-105)
--- NOTE | 2024-02-17 18:33 | PC.NURSE ---
This patient, Mahad Castanon, was transferred to [[facility] ] on 02/17/24 at 1834. Personal belongings sent with patient. Report given to [ JATIN Cardoso @ [phone]]. Appropriate documentation sent with patient.
[2024-02-17] MEDS: RIVAROXABAN 20 MG TABLET PO (20:31)
[2024-02-17 20:44] LABS: Glucose Point of Care 206 mg/dl (65-105)
[2024-02-18] VITALS: BP 129/73; PULSE 92; RESP 18; TEMP 37.1; O2SAT 99
[2024-02-18 00:04] VITALS: PULSE 116
[2024-02-18 04:00] VITALS: PULSE 103
[2024-02-18] MEDS: LEVOTHYROXINE SODIUM 50 MCG TABLET PO (05:32)
[2024-02-18 06:20] LABS: Glucose Point of Care 172 mg/dl (65-105)
[2024-02-18 08:29] LABS: Glucose Point of Care 160 mg/dl (65-105)
--- NOTE | 2024-02-18 08:55 | P.DS_ITS ---
DS: Admitting Diagnosis Discharge Date 02/18/24 Admitting Diagnosis A-fib RVR CHF Exacerbation COPD DS: Discharge Diagnosis Discharge Diagnosis (1) Atrial fibrillation with RVR: Code(s): I48.91 - Unspecified atrial fibrillation Status: Acute Assessment and Plan: 02/17/24: * Initially presenting with AFib RVR. He is currently rate controlled. * Continue current medications. * Cardiology following. * Continue telemetry but may step-down from IMU. * Continue Xarelto. 02/18/24: * Discharge today. * Rate fairly controlled. * Cardiology recs to continue all current cardiac medications. * Follow up with Cards as outpt. * Continue Xarelto. (2) CHF exacerbation: Code(s): I50.9 - Heart failure, unspecified Status: Deleted Assessment and Plan: Contact Center Consultant consult appreciate recommendation and plan -continue Entresto Continue metoprolol per Cardiology continue hold Jardiance due to urinary incontinence Repeat echocardiogram 1. Complete two-dimensional, color flow and Doppler transthoracic echocardiogram is performed. 2. Mild left ventricular enlargement with mild global systolic dysfunction ejection fraction 40-45%. 3. Biatrial dilation. 4. Mild to moderate mitral regurgitation. 5. Mild aortic and tricuspid regurgitation. 6. Atrial fibrillation. fluid overload is improving, still has some arouse in left lower base. 02/18/24: * Discharging today. * Continue all cardiac meds with Lasix 20 mg po daily for continued heart failure maintenance. * ECHO this visit demonstrated EF of 41-49%. * Continue Entresto, coupon given by Care coordination * Continue Toprol * Continue Spironolactone * Pt not taking Jardiance as he has urinary incontinence with it. * Appears euvolemic today at discharge. (3) Lung infiltrate: Code(s): R91.8 - Other nonspecific abnormal finding of lung field Status: Acute Assessment and Plan: 02/17/24: * Continue antibiotics of aztreonam and azithromycin. * Respiratory function is stable. * Patient on room air. * Plan on transitioning to oral antibiotics tomorrow. 02/18/24: * Discharge today on Doxycycline 100 mg for one final dose this evening and Cefdinir 300 mg Q12 hrs ending 02/20/24 at 2100. * Not meeting SIRS/Sepsis criteria. (4) Diabetes mellitus type 2, controlled: Qualifiers: Diabetes mellitus swager operator insulin use: without swager operator use Diabetes mellitus complication status: without complication Qualified Code(s): E11.9 - Type 2 diabetes mellitus without complications Code(s): E11.9 - Type 2 diabetes mellitus without complications Status: Acute Assessment and Plan: -bedside glucose management -initiate hypoglycemic protocol 02/17/24: * Continue hypoglycemic protocol. * Glucose checks a.c. and HS as well as as needed * sliding scale insulin * diabetic diet * check A1c in a.m.. 02/18/24: * stable. * Continue home medication regimen on discharge. (5) Essential hypertension: Code(s): I10 - Essential (primary) hypertension Status: Acute Assessment and Plan: -stable continue Lasix, Entresto, metoprolol -continue spironolactone 02/17/24: * Continue current medications. * Continue to monitor blood pressure 02/18/24: * Continue current regimen on discharge. * Stable BP at time of discharge. (6) Hypothyroidism: Qualifiers: Hypothyroidism type: acquired Qualified Code(s): E03.9 - Hypothyroidism, unsp
--- NOTE | 2024-02-18 08:55 | PM.DS ---
DS: Admitting Diagnosis Discharge Date 02/18/24 Admitting Diagnosis A-fib RVR CHF Exacerbation COPD DS: Discharge Diagnosis Discharge Diagnosis (1) Atrial fibrillation with RVR: Code(s): I48.91 - Unspecified atrial fibrillation Status: Acute Assessment and Plan: 02/17/24: Initially presenting with AFib RVR. He is currently rate controlled. Continue current medications. Cardiology following. Continue telemetry but may step-down from IMU. Continue Xarelto. 02/18/24: Discharge today. Rate fairly controlled. Cardiology recs to continue all current cardiac medications. Follow up with Cards as outpt. Continue Xarelto. (2) CHF exacerbation: Code(s): I50.9 - Heart failure, unspecified Status: Deleted Assessment and Plan: Drafting Supervisor consult appreciate recommendation and plan -continue Entresto Continue metoprolol per Cardiology continue hold Jardiance due to urinary incontinence Repeat echocardiogram 1. Complete two-dimensional, color flow and Doppler transthoracic echocardiogram is performed. 2. Mild left ventricular enlargement with mild global systolic dysfunction ejection fraction 40-45%. 3. Biatrial dilation. 4. Mild to moderate mitral regurgitation. 5. Mild aortic and tricuspid regurgitation. 6. Atrial fibrillation. fluid overload is improving, still has some arouse in left lower base. 02/18/24: Discharging today. Continue all cardiac meds with Lasix 20 mg po daily for continued heart failure maintenance. ECHO this visit demonstrated EF of 41-49%. Continue Entresto, coupon given by Care coordination Continue Toprol Continue Spironolactone Pt not taking Jardiance as he has urinary incontinence with it. Appears euvolemic today at discharge. (3) Lung infiltrate: Code(s): R91.8 - Other nonspecific abnormal finding of lung field Status: Acute Assessment and Plan: 02/17/24: Continue antibiotics of aztreonam and azithromycin. Respiratory function is stable. Patient on room air. Plan on transitioning to oral antibiotics tomorrow. 02/18/24: Discharge today on Doxycycline 100 mg for one final dose this evening and Cefdinir 300 mg Q12 hrs ending 02/20/24 at 2100. Not meeting SIRS/Sepsis criteria. (4) Diabetes mellitus type 2, controlled: Qualifiers: Diabetes mellitus intermediate designer insulin use: without intermediate designer use Diabetes mellitus complication status: without complication Qualified Code(s): E11.9 - Type 2 diabetes mellitus without complications Code(s): E11.9 - Type 2 diabetes mellitus without complications Status: Acute Assessment and Plan: -bedside glucose management -initiate hypoglycemic protocol 02/17/24: Continue hypoglycemic protocol. Glucose checks a.c. and HS as well as as needed sliding scale insulin diabetic diet check A1c in a.m.. 02/18/24: stable. Continue home medication regimen on discharge. (5) Essential hypertension: Code(s): I10 - Essential (primary) hypertension Status: Acute Assessment and Plan: -stable continue Lasix, Entresto, metoprolol -continue spironolactone 02/17/24: Continue current medications. Continue to monitor blood pressure 02/18/24: Continue current regimen on discharge. Stable BP at time of discharge. (6) Hypothyroidism: Qualifiers: Hypothyroidism type: acquired Qualified Code(s): E03.9 - Hypothyroidism, unspecified Code(s): E03.9 - Hypothyroidism, unspecified Status: Chronic Assessment and Plan: -continue Synthroid 50 mg daily p.o. 02/17/24: continue Synthroid. 02/18/24: Continue synthroid (7) COPD (chronic obstructive pulmonary disease): Code(s): J44.9 - Chronic obstructive pulmonary disease, unspecified Status: Acute Assessment and Plan: X-ray revealed airspace opacity at lung base -continue azithromycin IV Q 24 02/17/24:
[2024-02-18 09:04] VITALS: BP 120/55; PULSE 120; O2SAT 94
[2024-02-18] MEDS: CEFDINIR 300 MG CAPSULE PO (09:05)
[2024-02-18] MEDS: ROSUVASTATIN 10 MG TABLET PO (09:05)
[2024-02-18 09:06] VITALS: PULSE 120
[2024-02-18] MEDS: SPIRONOLACTONE 25 MG TABLET PO (09:06)
[2024-02-18] MEDS: METOPROLOL SUCCINATE EXT REL 100 MG TABCR 200 MG PO (09:06)
[2024-02-18] MEDS: SACUBITRIL/VALSARTAN 24-26 MG TABLET 1 TAB PO (09:06)
[2024-02-18] MEDS: DOXYCYCLINE HYCLATE 100 MG TABLET PO (09:06)
[2024-02-18] MEDS: DOCUSATE SODIUM 100 MG CAPSULE PO (09:06)
[2024-02-18] MEDS: FUROSEMIDE INJ 40 MG/4 ML VIAL IV PUSH (09:06)
[2024-02-18] MEDS: polyethylene glycoL 3350 17 GM POWD.PACK PO (09:06)
--- NOTE | 2024-02-18 11:07 | PM.PNCARD ---
Progress Note: A&P Assessment and Plan (1) Acute on chronic heart failure with mildly reduced ejection fraction (HFmrEF, 41-49%): Code(s): I50.23 - Acute on chronic systolic (congestive) heart failure Status: Acute Assessment and Plan: Continue low dose p.o. furosemide for maintenance Continue Entresto. Continue Toprol. Started Spironolactone. Choosing not to add SGLT2i as he has self discontinued this in the past because of urinary incontinence. OK for discharge today from a cardiac standpoint. (2) Atrial fibrillation with RVR: Code(s): I48.91 - Unspecified atrial fibrillation Status: Acute Assessment and Plan: Rate controlled for the most part. Continue Toprol and Xarelto. (3) Hyperlipidemia: Code(s): E78.5 - Hyperlipidemia, unspecified Status: Acute Assessment and Plan: Continue Rosuvastatin. (4) Diabetes mellitus type 2, controlled: Qualifiers: Diabetes mellitus complication status: without complication Diabetes mellitus jail insulin use: without intermediate teacher use Qualified Code(s): E11.9 - Type 2 diabetes mellitus without complications Code(s): E11.9 - Type 2 diabetes mellitus without complications Status: Acute Assessment and Plan: Management as per primary team. (5) Essential hypertension: Code(s): I10 - Essential (primary) hypertension Status: Acute Assessment and Plan: Stable. Continue Lasix, Entresto, Toprol. Added Spironolactone for HFmrEF. Subjective Date/time seen: 02/18/24 11:07 Interval history: Reason for visit: Acute on chronic HFmrEF HPI: This is an 83-year-old man I am seeing at the request of the hospitalist for assistance with the management of congestive heart failure. Patient is unknown to me prior to this consult but is followed by my partner in the office Dr. Cruz. Patient has a history of chronic atrial fibrillation and left ventricular systolic dysfunction. He says that he came to the hospital yesterday because of shortness of breath and lower extremity edema that has been gradually worsening for about 3 weeks. The symptoms have been causing him to sleep poorly at night and he came to the emergency room yesterday. Since admission he has been treated with intravenous furosemide as well as having some oral diltiazem added to his medical regimen. The patient appears to be relatively comfortable at this time in bed with the head elevated breathing room air he still has moderate lower extremity edema. His cardiac history dates back to 2016 when he was hospitalized here with shortness of breath and CHF. He was found to have left ventricular systolic dysfunction and a a atrial fibrillation. Attempts at rhythm control were carried out after anticoagulation. There was an attempt at cardioversion which lasted for about 10 days back in 2016. Because of this he was loaded as an outpatient with amiodarone and another attempted cardioversion took place in February of 2017. That also did not sustain sinus rhythm and for the 1 week follow-up visit he was back in atrial fibrillation. Amiodarone was discontinued and a rate control/anticoagulation strategy was pursued. He did see electrophysiology on 2 occasions over the years but declined an attempt at ablation of his atrial fib several years ago. He is not known to have coronary artery disease he did have a normal nuclear stress test at the time of his initial diagnosis. He last saw my partner in November of this year which time he says he was feeling well and denied any of the symptoms. His medical regimen at that time did consist of Jardiance which he said he stopped because it was causing urinary incontinence and he has not been on a diuretic. He takes metoprolol succinate 200 mg daily for rate control and systemic anticoagulation with Xarelto. His left ventricular systolic function did improve from and initially to motion more recent echoes in the last co
== END 2024-02-18 11:34 | disposition home or self-care (01) | DRG 291 ==
LOC: ANHED 19:27 → ANHIMU 21:08 → ANH2MED 02-17 19:03
PROVIDERS: Hospitalist; Admitting Provider General Practice; Emergency Provider Emergency Medicine; PCP Family Medicine; Visit Provider Nurse Practitioner Adult Health
DX: I11.0 Hypertensive heart disease with heart failure (principal); I50.23 Acute on chronic systolic (congestive) heart failure; I48.20 Chronic atrial fibrillation, unspecified; I42.9 Cardiomyopathy, unspecified; J44.9 Chronic obstructive pulmonary disease, unspecified; R91.8 Other nonspecific abnormal finding of lung field; E11.9 Type 2 diabetes mellitus without complications; E03.9 Hypothyroidism, unspecified; E78.5 Hyperlipidemia, unspecified; K21.9 Gastro-esophageal reflux disease without esophagitis; M19.90 Unspecified osteoarthritis, unspecified site; Z96.653 Presence of artificial knee joint, bilateral; Z85.46 Personal history of malignant neoplasm of prostate; Z79.01 Long term (current) use of anticoagulants; Z87.891 Personal history of nicotine dependence
CPT/HCPCS: 36415; 71046; 80048; 80053; 82948; 83690; 83880; 84484; 85025; 85610; 85730; 87040; 93005; 93306; 96365; 96366; 96367; 96375; 96376; 99285; A9270; G0378; J0456; J0457; J1815; J1940; J3480